=== PATIENT | male | born 1950 | race Caucasian/White ===

== ENCOUNTER → 2018-04-06 | Outpatient (CLI) | payer OTHER ==
--- NOTE | 2018-04-06 10:28 | ECHOF ---
Referral Reason:[id number] Personal history of pulmonary embolism MEASUREMENTS -------- HEIGHT: 170.2 cm WEIGHT: 106.6 kg BP: 141/72 RVIDd: 3.1 cm (< 3.3) IVSd: 1.1 cm (0.6 - 1.1) LVIDd: 5.2 cm (3.9 - 5.3) LVPWd: 1.2 cm (0.6 - 1.1) IVSs: 2.0 cm LVIDs: 3.3 cm LVPWs: 1.6 cm LA Diam: 3.3 cm (2.7 - 3.8) LAESV Index (A-L): 39.28 ml/m Ao Diam: 3.7 cm (2.0 - 3.7) AV Cusp: 2.6 cm (1.5 - 2.6) MV EXCURSION: 21.171 mm (> 18.000) MV EF SLOPE: 118 mm/s (70 - 150) EPSS: 0.3 cm MV E Hossein: 0.86 m/s MV DecT: 251 ms MV A Hossein: 0.70 m/s MV E/A Ratio: 1.22 FINDINGS -------- Sinus rhythm. This was a technically good study. The left ventricular size is normal. There is borderline concentric left ventricular hypertrophy. Overall left ventricular systolic function is normal with, an EF between 55 - 60 %. The right ventricle is normal in size. LA is moderately dilated 34-39 ml/m2 The right atrium is normal in size. Aneurysmal Interatrial septum. There is mild aortic valve sclerosis. The mitral valve is normal. The tricuspid valve appears structurally normal. Trace/mild (physiologic) pulmonic regurgitation. The aortic root size is normal. Normal inferior vena cava with normal inspiratory collapse consistent with estimated right atrial pre ssure of 5 mmHg. There is no pericardial effusion. CONCLUSIONS -------- 1. Sinus rhythm. 2. This was a technically good study. 3. The left ventricular size is normal. 4. There is borderline concentric left ventricular hypertrophy. 5. Overall left ventricular systolic function is normal with, an EF between 55 - 60 %. 6. The right ventricle is normal in size. 7. LA is moderately dilated 34-39 ml/m2 8. The right atrium is normal in size. 9. Aneurysmal Interatrial septum. 10. There is mild aortic valve sclerosis. 11. The mitral valve is normal. 12. The tricuspid valve appears structurally normal. 13. Trace/mild (physiologic) pulmonic regurgitation. 14. The aortic root size is normal. 15. Normal inferior vena cava with normal inspiratory collapse consistent with estimated right atrial pressure of 5 mmHg. 16. There is no pericardial effusion. DEBURR OPERATOR: Marta Zelaya RDCS
== END | disposition home or self-care (01) ==
LOC: RADECHMAIN 08:15
DX: I35.0 Nonrheumatic aortic (valve) stenosis (principal); Z86.711 Personal history of pulmonary embolism; Z87.891 Personal history of nicotine dependence
CPT/HCPCS: 93306

== ENCOUNTER 2021-08-24 16:14 | Inpatient (IN) | payer OTHER, MEDICARE ==
--- NOTE | 2021-08-24 18:00 | XR ---
EXAMINATION TYPE: XR chest 2V DATE OF EXAM: 08/24/2021 COMPARISON: NONE HISTORY: Pain status post fall TECHNIQUE: Frontal and lateral views of the chest are obtained. FINDINGS: There is a mild to moderate bibasilar streaky opacities. No pleural effusion, or pneumotho rax seen. The cardiac silhouette size is within normal limits. No obvious displaced fracture seen. IMPRESSION: Bibasilar opacities, likely atelectasis versus aspiration changes.
[2021-08-24] MEDS ORDERED: HYDROmorphone 1 MG/ML 1 ML SYRINGE IVP STA (19:36)
[2021-08-24 20:00] LABS: Basophils % (A) 0 %; Eosinophils # (A) 0.1 k/uL (0-0.7); Eosinophils % (A) 1 %; HCT 45.3 % (39.0-53.0); Lymphocytes # (A) 1.2 k/uL (1.0-4.8); Lymphocytes % (A) 12 %; MCH 32.9 pg (25.0-35.0); MCHC 33.2 g/dL (31.0-37.0); MCV 99.2 fL (80.0-100.0); Mean Platelet Volume 7.4; Monocytes # (A) 0.7 k/uL (0-1.0); Monocytes % (A) 7 %; Neutrophils % (A) 79 %; Platelet Count 276 k/uL (150-450); RBC 4.56 m/uL (4.30-5.90); RDW 13.3 % (11.5-15.5)
[2021-08-24] MEDS ORDERED: HYDROmorphone 0.5 MG/0.5 ML SYRINGE IVP STA (20:03)
[2021-08-24 20:14] LABS: INR 2.3 (<1.2); Partial Thromboplastin Time 36.1 sec (22.0-30.0); Prothrombin Time 22.7 sec (9.0-12.0)
--- NOTE | 2021-08-24 20:17 | XR ---
EXAMINATION TYPE: XR chest 2V DATE OF EXAM: 08/24/2021 COMPARISON: Same-day HISTORY: Pain status post fall TECHNIQUE: Frontal and lateral views of the chest are obtained. FINDINGS: There is unchanged mild bibasilar streaky opacities. No pleural effusion, or pneumothorax seen. The cardiac silhouette size is within normal limits. The osseous structures are unchanged. IMPRESSION: No significant interval change.
--- NOTE | 2021-08-24 20:30 | CT ---
EXAMINATION TYPE: CT ChestAbdPelvis w con DATE OF EXAM: 08/24/2021 COMPARISON: Same-day radiographs. HISTORY: fall, chest pain CT DLP: 2884.4 mGycm Automated exposure control for dose reduction was used. CONTRAST: CT scan of the chest, abdomen and pelvis is performed without Oral Contrast and with IV Contrast, pat ient injected with 100 mL of Isovue 300. FINDINGS: LUNGS: There is mild dependent opacities. No significant infiltrate, mass or nodule identified. The re is no pleural effusion or pneumothorax seen. The tracheobronchial tree is patent. MEDIASTINUM: There are no greater than 1 cm hilar or mediastinal lymph nodes. No pericardial effusi on is seen. OTHER: No additional significant abnormality is seen. LIVER/GB: No acute abnormality is appreciated. Cholelithiasis. PANCREAS: No significant abnormality is seen. SPLEEN: No significant abnormality is seen. ADRENALS: No significant abnormality is seen. KIDNEYS: No acute abnormality is seen. 3.2 cm simple appearing left renal cyst present. BOWEL: No significant abnormality is seen. REPRODUCTIVE ORGANS: No gross abnormality seen. LYMPH NODES: No greater than 1 cm abdominal or pelvic lymph nodes are appreciated. OSSEOUS STRUCTURES: Subacute/chronic appearing cortical irregularity of mid sternal body. Remaining o sseous structures are anatomic alignment. OTHER: Penile implant seen. IMPRESSION: Subacute/chronic appearing sternal fracture. Otherwise no acute intrathoracic and abdominal/pelvic abnormality. Dependent atelectasis. Additional chronic and incidental findings as above.
[2021-08-24 20:32] LABS: ALT 19 U/L (4-49); AST 21 U/L (17-59); African American GFR (CKD) >90 (>60 ml/min/1.73 sqM); Albumin 4.4 g/dL (3.5-5.0); Alkaline Phosphatase 69 U/L (38-126); Anion Gap 8 mmol/L; Blood Urea Nitrogen 9 mg/dL (9-20); Calcium 9.4 mg/dL (8.4-10.2); Carbon Dioxide 27 mmol/L (22-30); Chloride 102 mmol/L (98-107); Glucose 158 mg/dL (74-99); Magnesium 1.8 mg/dL (1.6-2.3); Non-African American GFR(CKD) >90 (>60 ml/min/1.73 sqM); Potassium 4.4 mmol/L (3.5-5.1); Sodium 137 mmol/L (137-145); Total Bilirubin 0.9 mg/dL (0.2-1.3); Total Protein 7.3 g/dL (6.3-8.2)
--- NOTE | 2021-08-24 20:50 | ED ---
General Adult HPI - General Chief complaint: Fall Stated complaint: Fall, Pain in chest from fall Time Seen by Provider: 08/24/21 19:30 Source: patient, RN notes reviewed, old records reviewed Mode of arrival: ambulatory Limitations: no limitations - History of Present Illness Initial comments: This is a 71-year-old male presents emergency Department complaining of central chest pain. Patient states he fell on a steering column at home and ever since it hurts take a deep breath per patient states he is not short of breath. Hurts take a deep breath. Patient denies hitting his head or neck pain patient denies any numbness weakness. Patient denies any back pain. Patient denies any abdominal pain. Patient denies any other injury. - Related Data Home Medications Medication Instructions Recorded Confirmed Pravastatin Sodium [Pravachol] 20 mg PO DAILY 10/23/13 11/22/17 Warfarin Sodium [Coumadin] 6 mg PO DAILY 10/23/13 11/22/17 glipiZIDE [Glucotrol] 10 mg PO BID 10/23/13 10/23/13 Alprostadil [Caverject] 250 mcg TRANSURETH DAILY 11/22/17 11/22/17 Carbidopa-Levodopa 25-100 mg 1 each PO TID 11/22/17 11/22/17 [Sinemet 25-100] Cholecalciferol [Vitamin D3 (25 2,000 units PO DAILY 11/22/17 11/22/17 Mcg = 1000 Iu)] Cyanocobalamin [Vitamin B-12 1,000 mcg IM DIRECTED 11/22/17 11/22/17 Injection] metFORMIN HCL [Glucophage] 1,000 mg PO BID 11/22/17 11/22/17 Allergies Allergy/AdvReac Type Severity Reaction Status Date / Time No Known Allergies Allergy Verified 08/24/21 17:21 Review of Systems ROS Statement: Those systems with pertinent positive or pertinent negative responses have been documented in the HPI. ROS Other: All systems not noted in ROS Statement are negative. Past Medical History Past Medical History: Diabetes Mellitus, Deep Vein Thrombosis (DVT), Hyperlipidemia Additional Past Medical History / Comment(s): Hard of Hearing, basal cell CA, erectile dysfunction, vitamin D deficiency, DVT left leg, PEx2 History of Any Multi-Drug Resistant Organisms: None Reported Past Surgical History: Orthopedic Surgery Additional Past Surgical History / Comment(s): left broken leg-pin surgery Past Anesthesia/Blood Transfusion Reactions: No Reported Reaction Past Psychological History: No Psychological Hx Reported Past Alcohol Use History: None Reported Past Drug Use History: None Reported General Exam - General Exam Comments Initial Comments: GENERAL: Patient is well-developed and well-nourished. Patient is nontoxic and well- hydrated and is in moderate distress. ENT: Neck is soft and supple. No significant lymphadenopathy is noted. Oropharynx is clear. Moist mucous membranes. Neck has full range of motion without eliciting any pain. EYES: The sclera were anicteric and conjunctiva were pink and moist. Extraocular movements were intact and pupils were equal round and reactive to light. Eyelids were unremarkable. PULMONARY: Unlabored respirations. Good breath sounds bilaterally. No audible rales rhonchi or wheezing was noted. CARDIOVASCULAR: There is a regular rate and rhythm without any murmurs gallops or rubs. Obvious deformity when the patient bruits in a very loud clicking sound when he breathes ABDOMEN: Soft and nontender with normal bowel sounds. SKIN: Skin is clear with no lesions or rashes and otherwise unremarkable. NEUROLOGIC: Patient is alert and oriented x3. Cranial nerves II through XII are grossly intact. Motor and sensory are also intact. Normal speech, volume and content. Symmetrical smile. MUSCULOSKELETAL: Normal extremities with adequate strength and full range of motion. No lower extremity swelling or edema. No calf tenderness. LYMPHATICS: No significant lymphadenopathy is noted PSYCHIATRIC: Normal psychiatric evaluation. Limitations: no limitations Course Vital Signs 08/24/21 17:16 Temperature 97.8 F Pulse Rate 67 Respiratory 18 Rate Blood Pressure 161/86 O2 Sat by Pulse 96 Oximetry Medical Decision Making - Medical Decision Making CT chest abdomen pelvis shows a sternal fracture. Patient received Dilaudid in the emergency department was feeling better but anytime he moved took a deep breath he can feel the cracking and the pain was significant. I spoke with Dr. Cyr he agreed to admit the patient I admitted the patient I wrote admitting orders I consulted medicine and Cardizem surgery. EKG shows sinus rhythm with an occasional PVC at 86 bpm CO interval 132 QRS is 108 QT interval 362 QTC is 45. Patient's EKG shows no ST segment elevation however there is some T-wave inversions in V4 V5 and V6 is no old EKG to compare to. - Lab Data Result diagrams: 08/24/21 19:47 08/24/21 19:47 Lab Results 08/24/21 08/24/21 08/24/21 Range/Units 19:41 19:41 19:47 WBC 10.0 (3.8-10.6) k/uL RBC 4.56 (4.30-5.90) m/uL Hgb 15.0 (13.0-17.5) gm/dL Hct 45.3 (39.0-53.0) % MCV 99.2 (80.0-100.0) fL MCH 32.9 (25.0-35.0) pg MCHC 33.2 (31.0-37.0) g/dL RDW 13.3 (11.5-15.5) % Plt Count 276 (150-450) k/uL MPV 7.4 Neutrophils % 79 % Lymphocytes % 12 % Monocytes % 7 % Eosinophils % 1 % Basophils % 0 % Neutrophils # 8.0 H (1.3-7.7) k/uL Lymphocytes # 1.2 (1.0-4.8) k/uL Monocytes # 0.7 (0-1.0) k/uL Eosinophils # 0.1 (0-0.7) k/uL Basophils # 0.0 (0-0.2) k/uL PT (9.0-12.0) sec INR (<1.2) APTT (22.0-30.0) sec Sodium (137-145) mmol/L Potassium (3.5-5.1) mmol/L Chloride (98-107) mmol/L Carbon Dioxide (22-30) mmol/L Anion Gap mmol/L BUN (9-20) mg/dL Creatinine (0.66-1.25) mg/dL Est GFR (CKD-EPI)AfAm (>60 ml/min/1.73 sqM) Est GFR (CKD-EPI)NonAf (>60 ml/min/1.73 sqM) Glucose (74-99) mg/dL Calcium (8.4-10.2) mg/dL Magnesium (1.6-2.3) mg/dL Total Bilirubin (0.2-1.3) mg/dL AST (17-59) U/L ALT (4-49) U/L Alkaline Phosphatase (38-126) U/L Troponin I (0.000-0.034) ng/mL Total Protein (6.3-8.2) g/dL Albumin (3.5-5.0) g/dL Blood Type O Positive Blood Type Confirm O Positive Blood Type Recheck No Previous Record Bld Type Recheck Status CABO Indicated Antibody Screen NEGATIVE Spec Expiration Date 08/27/2021 - 234008/24/21 08/24/21 08/24/21 Range/Units 19:47 19:47 19:47 WBC (3.8-10.6) k/uL RBC (4.30-5.90) m/uL Hgb (13.0-17.5) gm/dL Hct (39.0-53.0) % MCV (80.0-100.0) fL MCH (25.0-35.0) pg MCHC (31.0-37.0) g/dL RDW (11.5-15.5) % Plt Count (150-450) k/uL MPV Neutrophils % % Lymphocytes % % Monocytes % % Eosinophils % % Basophils % % Neutrophils # (1.3-7.7) k/uL Lymphocytes # (1.0-4.8) k/uL Monocytes # (0-1.0) k/uL Eosinophils # (0-0.7) k/uL Basophils # (0-0.2) k/uL PT 22.7 H (9.0-12.0) sec INR 2.3 H (<1.2) APTT 36.1 H (22.0-30.0) sec Sodium 137 (137-145) mmol/L Potassium 4.4 (3.5-5.1) mmol/L Chloride 102 (98-107) mmol/L Carbon Dioxide 27 (22-30) mmol/L Anion Gap 8 mmol/L BUN 9 (9-20) mg/dL Creatinine 0.78 (0.66-1.25) mg/dL Est GFR (CKD-EPI)AfAm >90 (>60 ml/min/1.73 sqM) Est GFR (CKD-EPI)NonAf >90 (>60 ml/min/1.73 sqM) Glucose 158 H (74-99) mg/dL Calcium 9.4 (8.4-10.2) mg/dL Magnesium 1.8 (1.6-2.3) mg/dL Total Bilirubin 0.9 (0.2-1.3) mg/dL AST 21 (17-59) U/L ALT 19 (4-49) U/L Alkaline Phosphatase 69 (38-126) U/L Troponin I <0.012 (0.000-0.034) ng/mL Total Protein 7.3 (6.3-8.2) g/dL Albumin 4.4 (3.5-5.0) g/dL Blood Type Blood Type Confirm Blood Type Recheck Bld Type Recheck Status Antibody Screen Spec Expiration Date Disposition Clinical Impression: Sternal fracture, Fall Disposition: ADMITTED IP TO THIS HOSP Referrals: [facility],Clinic [Primary Care Provider] - 1-2 days Time of Disposition: 21:05
[2021-08-24] MEDS ORDERED: SODIUM CHLORIDE 0.9% 1,000 ML IV ONE (21:12)
[2021-08-24] MEDS ORDERED: MELATONIN 3 MG TABLET PO PRN (23:23)
[2021-08-24] MEDS ORDERED: TAMSULOSIN 0.4 MG CAP.ER.24H PO SCH (23:30)
[2021-08-24] MEDS ORDERED: lisinopriL 10 MG TAB PO SCH (23:30)
[2021-08-24] MEDS ORDERED: PRAVASTATIN SODIUM 20 MG TAB PO SCH (23:30)
[2021-08-24] MEDS: CARBIDOPA-LEVODOPA 25-100 MG 1 EACH TAB PO SCH (23:39)
[2021-08-25] MEDS: HYDROmorphone 0.5 MG/0.5 ML SYRINGE IVP PRN ×2 (06:56→10:06)
[2021-08-25] MEDS: CARBIDOPA-LEVODOPA 25-100 MG 1 EACH TAB PO SCH (06:57)
[2021-08-25 07:24] LABS: Glucose,Whole Blood 164 mg/dL (75-99)
[2021-08-25 11:22] LABS: Glucose,Whole Blood 343 mg/dL (75-99)
--- NOTE | 2021-08-25 11:44 | P.GSCN ---
<Ruma Law - Last Filed: 08/25/21 11:37> History of Present Illness Consult date: 08/25/21 Reason for Consult: Sternal fracture Requesting physician: Emiliano Cyr History of present illness: This is a 71-year-old gentleman who follows on an outpatient basis at the [facility] clinic. He has a previous medical history of multiple falls, hypertension, left lower extremity DVT on Coumadin at home for anticoagulation, fxu-oqkcwba-pgyzouvbt diabetes, obstructive sleep apnea with home CPAP use, previous tobacco dependence, rare marijuana use. Apparently this gentleman fell about a year ago while moving equipment and landed on his chest. He did not seek treatment in the emergency room as his pain was tolerable at that time. Yesterday he presented to [facility] emergency room again after a fall from tripping while moving car parts. This time he landed on his right side and he had significant chest pain so he presented to the hospital for evaluation and treatment. Chest x-rays demonstrated no fractures and no pneumothoraces. CT of the chest and abdomen was also completed demonstrating sternal fracture, no acute process. Due to finding of sternal fracture consultation was placed to Dr. Jaimes from cardiothoracic surgery. Review of Systems Review of systems was completed and was negative except as noted - Cardiovascular Reports as per HPI, Reports chest pain - Musculoskeletal Reports frequent falls Past Medical History Past Medical History: Diabetes Mellitus, Deep Vein Thrombosis (DVT), Hype rlipidemia, Sleep Apnea/CPAP/BIPAP Additional Past Medical History / Comment(s): Hard of Hearing, basal cell CA on face, erectile dysfunction, vitamin D deficiency, DVT left leg, PEx2, Parkinsons History of Any Multi-Drug Resistant Organisms: None Reported Past Surgical History: Orthopedic Surgery Additional Past Surgical History / Comment(s): left broken leg-pin surgery Past Anesthesia/Blood Transfusion Reactions: No Reported Reaction Past Psychological History: No Psychological Hx Reported Smoking Status: Former smoker Past Alcohol Use History: None Reported Past Drug Use History: Marijuana Additional Drug Use History / Comment(s): "Once in a while, not a regular thing" - Past Family History Mother Additional Family Medical History / Comment(s): alzheimers Father Additional Family Medical History / Comment(s): Stroke Medications and Allergies Home Medications Medication Instructions Recorded Confirmed Type Carbidopa-Levodopa 25-100 mg 1 tab PO TID 11/22/17 08/24/21 History [Sinemet 25-100] Cyanocobalamin [Vitamin B-12 1,000 mcg IM Q2M 11/22/17 08/24/21 History Injection] metFORMIN HCL [Glucophage] 1,000 mg PO BID-W/MEALS 11/22/17 08/24/21 History Cholecalciferol [Vitamin D3 (25 50 mcg PO W/SUPPER 08/24/21 08/24/21 History Mcg = 1000 Iu)] Pravastatin Sodium [Pravachol] 20 mg PO HS 08/24/21 08/24/21 History Tamsulosin HCl [Flomax] 0.4 mg PO HS 08/24/21 08/24/21 History Warfarin [Coumadin] 2.5 mg PO HS 08/24/21 08/24/21 History Warfarin [Coumadin] 5 mg PO HS 08/24/21 08/24/21 History buPROPion HCL [buPROPion HCL SR] 150 mg PO DAILY 08/24/21 08/24/21 History glipiZIDE [Glucotrol] 10 mg PO BID-W/MEALS 08/24/21 08/24/21 History lisinopriL 10 mg PO W/SUPPER 08/24/21 08/24/21 History Allergies Allergy/AdvReac Type Severity Reaction Status Date / Time No Known Allergies Allergy Verified 08/24/21 21:55 Surgical - Exam Vital Signs Temp Pulse Resp BP Pulse Ox 97.8 F 67 18 161/86 96 08/24/21 17:16 08/24/21 17:16 08/24/21 17:16 08/24/21 17:16 08/24/21 17:16 CONSTITUTIONAL: Awake and alert, appears comfortable, cooperative, well-develope d, well-nourished, no pain, no acute distress EYES: Pupils equal, round, reactive to light, normal ocular movement ENT: Moist mucous membranes without oral lesions present NECK: No masses, no bruits, trachea midline RESPIRATORY: Lungs sounds diminished auscultation bilaterally. Respirations ev en, nonlabored. Currently on 2 L nasal cannula with oxygen saturation 95%. Strong cough. CARDIOVASCULAR: S1, S2 present. Regular rate and rhythm, sinus rhythm on telemetry. Sternum stable. Palpable peripheral pulses bilaterally. GASTROINTESTINAL: Abdomen soft, nontender, nondistended without masses or organomegaly noted. There is no rebound or guarding present. Active bowel sounds present 4 quadrants. GENITOURINARY: Deferred INTEGUMENTARY: Skin is warm and dry with evidence of good perfusion. NEUROLOGIC: Cranial nerves II through XII intact, normal coordination, no obvious motor or sensory deficits, speech is normal MUSKULOSKELETAL: Able to move all extremities, strength equal bilaterally, normal posture PSYCHIATRIC: Alert and oriented to person place and time, appropriate affect, intact judgment and insight Results - Labs 08/24/21 19:47 08/24/21 19:47 Abnormal Lab Results - Last 24 Hours (Table) 08/24/21 08/24/21 08/24/21 Range/Units 19:47 19:47 19:47 Neutrophils # 8.0 H (1.3-7.7) k/uL PT 22.7 H (9.0-12.0) sec INR 2.3 H (<1.2) APTT 36.1 H (22.0-30.0) sec Glucose 158 H (74-99) mg/dL POC Glucose (mg/dL) (75-99) mg/dL 08/25/21 Range/Units 07:10 Neutrophils # (1.3-7.7) k/uL PT (9.0-12.0) sec INR (<1.2) APTT (22.0-30.0) sec Glucose (74-99) mg/dL POC Glucose (mg/dL) 164 H (75-99) mg/dL Diabetes panel 08/24/21 Range/Units 19:47 Sodium 137 (137-145) mmol/L Potassium 4.4 (3.5-5.1) mmol/L Chloride 102 (98-107) mmol/L Carbon Dioxide 27 (22-30) mmol/L BUN 9 (9-20) mg/dL Creatinine 0.78 (0.66-1.25) mg/dL Glucose 158 H (74-99) mg/dL Calcium 9.4 (8.4-10.2) mg/dL AST 21 (17-59) U/L ALT 19 (4-49) U/L Alkaline Phosphatase 69 (38-126) U/L Total Protein 7.3 (6.3-8.2) g/dL Albumin 4.4 (3.5-5.0) g/dL Calcium panel 08/24/21 Range/Units 19:47 Calcium 9.4 (8.4-10.2) mg/dL Albumin 4.4 (3.5-5.0) g/dL Pituitary panel 08/24/21 Range/Units 19:47 Sodium 137 (137-145) mmol/L Potassium 4.4 (3.5-5.1) mmol/L Chloride 102 (98-107) mmol/L Carbon Dioxide 27 (22-30) mmol/L BUN 9 (9-20) mg/dL Creatinine 0.78 (0.66-1.25) mg/dL Glucose 158 H (74-99) mg/dL Calcium 9.4 (8.4-10.2) mg/dL Adrenal panel 08/24/21 Range/Units 19:47 Sodium 137 (137-145) mmol/L Potassium 4.4 (3.5-5.1) mmol/L Chloride 102 (98-107) mmol/L Carbon Dioxide 27 (22-30) mmol/L BUN 9 (9-20) mg/dL Creatinine 0.78 (0.66-1.25) mg/dL Glucose 158 H (74-99) mg/dL Calcium 9.4 (8.4-10.2) mg/dL Total Bilirubin 0.9 (0.2-1.3) mg/dL AST 21 (17-59) U/L ALT 19 (4-49) U/L Alkaline Phosphatase 69 (38-126) U/L Total Protein 7.3 (6.3-8.2) g/dL Albumin 4.4 (3.5-5.0) g/dL - Imaging Chest x-ray: report reviewed, image reviewed CT scan - chest: report reviewed, image reviewed Assessment and Plan Assessment: 1. Old healed sternal fracture from previous fall, another fall from standing prior to this admission 2. History of hypertension 3. Left lower extremity DVT on Coumadin at home for anticoagulation 4. Rvt-mslsfkw-hdqbxyucw diabetes 5. Obstructive sleep apnea with home CPAP use 6. Previous tobacco dependence 7. Rare marijuana use Plan: The patient was seen and examined at the bedside. Chart/diagnostics were reviewed in detail with Dr. Jaimes. Patient's sternal fracture appears old and healed with calcium formation present. No surgical intervention is warranted. We will give patient a heart hugger to reduce stress on the sternum with mobility, coughing. We will order incentive spirometry and encourage its use. Pain control per primary care. Medical management of other comorbidities per primary care. Thank you Dr. Cyr for this consult. Please call us with any further questions. I have personally seen and examined the patient, performed the documentation and the assessment and plan as written. Number of minutes spent on the visit: 30. Time with Patient: Greater than 30 <Gio Jaimes - Last Filed: 08/25/21 13:36> Surgical - Exam Vital Signs Temp Pulse Resp BP Pulse Ox 97.8 F 67 18 161/86 96 08/24/21 17:16 08/24/21 17:16 08/24/21 17:16 08/24/21 17:16 08/24/21 17:16 Results - Labs 08/24/21 19:47 08/24/21 19:47 Abnormal Lab Results - Last 24 Hours (Table) 08/24/21 08/24/21 08/24/21 Range/Units 19:47 19:47 19:47 Neutrophils # 8.0 H (1.3-7.7) k/uL PT 22.7 H (9.0-12.0) sec INR 2.3 H (<1.2) APTT 36.1 H (22.0-30.0) sec Glucose 158 H (74-99) mg/dL POC Glucose (mg/dL) (75-99) mg/dL 08/25/21 08/25/21 Range/Units 07:10 11:17 Neutrophils # (1.3-7.7) k/uL PT (9.0-12.0) sec INR (<1.2) APTT (22.0-30.0) sec Glucose (74-99) mg/dL POC Glucose (mg/dL) 164 H 343 H (75-99) mg/dL Diabetes panel 08/24/21 Range/Units 19:47 Sodium 137 (137-145) mmol/L Potassium 4.4 (3.5-5.1) mmol/L Chloride 102 (98-107) mmol/L Carbon Dioxide 27 (22-30) mmol/L BUN 9 (9-20) mg/dL Creatinine 0.78 (0.66-1.25) mg/dL Glucose 158 H (74-99) mg/dL Calcium 9.4 (8.4-10.2) mg/dL AST 21 (17-59) U/L ALT 19 (4-49) U/L Alkaline Phosphatase 69 (38-126) U/L Total Protein 7.3 (6.3-8.2) g/dL Albumin 4.4 (3.5-5.0) g/dL Calcium panel 08/24/21 Range/Units 19:47 Calcium 9.4 (8.4-10.2) mg/dL Albumin 4.4 (3.5-5.0) g/dL Pituitary panel 08/24/21 Range/Units 19:47 Sodium 137 (137-145) mmol/L Potassium 4.4 (3.5-5.1) mmol/L Chloride 102 (98-107) mmol/L Carbon Dioxide 27 (22-30) mmol/L BUN 9 (9-20) mg/dL Creatinine 0.78 (0.66-1.25) mg/dL Glucose 158 H (74-99) mg/dL Calcium 9.4 (8.4-10.2) mg/dL Adrenal panel 08/24/21 Range/Units 19:47 Sodium 137 (137-145) mmol/L Potassium 4.4 (3.5-5.1) mmol/L Chloride 102 (98-107) mmol/L Carbon Dioxide 27 (22-30) mmol/L BUN 9 (9-20) mg/dL Creatinine 0.78 (0.66-1.25) mg/dL Glucose 158 H (74-99) mg/dL Calcium 9.4 (8.4-10.2) mg/dL Total Bilirubin 0.9 (0.2-1.3) mg/dL AST 21 (17-59) U/L ALT 19 (4-49) U/L Alkaline Phosphatase 69 (38-126) U/L Total Protein 7.3 (6.3-8.2) g/dL Albumin 4.4 (3.5-5.0) g/dL Assessment and Plan Assessment: CT, CXR films reviewed and patient examined. No evidence of significant acute thoracic injury. Old healed sternal fracture evident on radiologic studies. Patient does state he had fall one year ago with injury to sternal region at that time.
[2021-08-25] MEDS ORDERED: INSULIN ASPART (NovoLOG) 100 UNIT/ML VIAL SQ SCH (12:30)
[2021-08-25 13:36] VITALS: BP 129/69; PULSE 51; RESP 16; TEMP 98.4
[2021-08-25] MEDS ORDERED: HYDROcodone/APAP 5-325MG 1 EACH TAB PO PRN (13:56)
--- NOTE | 2021-08-25 15:23 | P.GSHP ---
History of Present Illness H&P Date: 08/25/21 CHIEF COMPLAINT: Fall HISTORY OF PRESENT ILLNESS: This is a 71-year-old male who presented to the e mergency room with complaints of right-sided chest pain after a fall. Patient reports that he was carrying the steering we will call him and tripped over a tire on the ground. The steering will calm jabbed him into the chest. And sternum area. He was having a hard time taking a deep breath. Patient reports having a similar fall about 1 year ago. At that time he fell while holding a TV in the TV slammed into his chest wall. Patient had a computed tomography scan of the chest abdomen and pelvis that showed a subacute chronic sternal fracture. Patient seen evaluated by cardiothoracic surgery. They've ordered a brace for the chest wall. No surgical intervention planned and have cleared him for discharge. Patient has been up and ambulating. He is on room air. He is tolerating diet. He is afebrile. PAST MEDICAL HISTORY: See list. PAST SURGICAL HISTORY: See list. MEDICATIONS: See list. ALLERGIES: See list. SOCIAL HISTORY: No illicit drug use. REVIEW OF SYSTEMS: CONSTITUTIONAL: Denies fever or chills. HEENT: Denies blurred vision, vision changes, or eye pain. Denies hemoptysis CARDIOVASCULAR: Denies chest pain or pressure. RESPIRATORY: No shortness of breath. GASTROINTESTINAL: See HPI for pertinent findings HEMATOLOGIC: Denies bleeding disorders. GENITOURINARY: Denies any blood in urine or increased urinary frequency. SKIN: Denies pruitis. Denies rash. PHYSICAL EXAM: VITAL SIGNS: Reviewed GENERAL: Well-developed in no acute distress. HEENT: No sclera icterus. Extraocular movements grossly intact. Moist buccal mucosa. Head is atraumatic, normocephalic. No nasal drainage. ABDOMEN: Soft. Nondistended. Nondistended NEUROLOGIC: Alert and oriented. Cranial nerves II through XII grossly intact. Chest wall no evidence of bruising some mild tenderness with palpation. LABORATORY DATA: WBC is 10 hemoglobin is 15 platelets 266 INR 2.3 Sodium is 137 potassium 4.4 creatinine 0.78 Troponins negative 3 LFTs normal IMAGING: Computed tomography scan chest abdomen pelvis subacute/chronic appearing sternal fracture. No acute intrathoracic area abdominal abnormality. Dependent atelectasis. ASSESSMENT: 1. Fall with trauma to chest wall 2. Subacute/chronic sternal fracture PLAN: -Cardiothoracic team consulted -Continue pain medication as needed -Continue supportive care -Continue incentive spirometer use -Encourage patient to ambulate -No surgical intervention planned Physician Learning Disabilities Specialist note has been reviewed by physician. Signing provider agrees with the documented findings, assessment, and plan of care. Past Medical History Past Medical History: Diabetes Mellitus, Deep Vein Thrombosis (DVT), Hyperlipidemia Additional Past Medical History / Comment(s): Hard of Hearing, basal cell CA on face, erectile dysfunction, vitamin D deficiency, DVT left leg, PEx2, Pa rkinsons History of Any Multi-Drug Resistant Organisms: None Reported Past Surgical History: Orthopedic Surgery Additional Past Surgical History / Comment(s): left broken leg-pin surgery Past Anesthesia/Blood Transfusion Reactions: No Reported Reaction Past Psychological History: No Psychological Hx Reported Smoking Status: Former smoker Past Alcohol Use History: None Reported Past Drug Use History: Marijuana Additional Drug Use History / Comment(s): "Once in a while, not a regular thing" - Past Family History Mother Additional Family Medical History / Comment(s): alzheimers Father Additional Family Medical History / Comment(s): Stroke Medications and Allergies Home Medications Medication Instructions Recorded Confirmed Type Carbidopa-Levodopa 25-100 mg 1 tab PO TID 11/22/17 08/24/21 History [Sinemet 25-100 mg] Cyanocobalamin [Vitamin B-12 1,000 mcg IM Q2M 11/22/17 08/24/21 History Injection] metFORMIN HCL [Glucophage] 1,000 mg PO BID-W/MEALS 11/22/17 08/24/21 History Cholecalciferol [Vitamin D3 (25 50 mcg PO W/SUPPER 08/24/21 08/24/21 History Mcg = 1000 Iu)] Pravastatin Sodium [Pravachol] 20 mg PO HS 08/24/21 08/24/21 History Tamsulosin HCl [Flomax] 0.4 mg PO HS 08/24/21 08/24/21 History Warfarin [Coumadin] 2.5 mg PO HS 08/24/21 08/24/21 History Warfarin [Coumadin] 5 mg PO HS 08/24/21 08/24/21 History buPROPion HCL [buPROPion HCL SR] 150 mg PO DAILY 08/24/21 08/24/21 History glipiZIDE [Glucotrol] 10 mg PO BID-W/MEALS 08/24/21 08/24/21 History lisinopriL 10 mg PO W/SUPPER 08/24/21 08/24/21 History HYDROcodone/APAP 5-325MG [[place] 1 tab PO Q6HR PRN 3 Days #12 tab 08/25/21 Rx 5-325] Allergies Allergy/AdvReac Type Severity Reaction Status Date / Time No Known Allergies Allergy Verified 08/24/21 21:55 Surgical - Exam Vital Signs Temp Pulse Resp BP Pulse Ox 97.8 F 67 18 161/86 96 08/24/21 17:16 08/24/21 17:16 08/24/21 17:16 08/24/21 17:16 08/24/21 17:16 Results - Labs 08/24/21 19:47 08/24/21 19:47 Abnormal Lab Results - Last 24 Hours (Table) 08/24/21 08/24/21 08/24/21 Range/Units 19:47 19:47 19:47 Neutrophils # 8.0 H (1.3-7.7) k/uL PT 22.7 H (9.0-12.0) sec INR 2.3 H (<1.2) APTT 36.1 H (22.0-30.0) sec Glucose 158 H (74-99) mg/dL POC Glucose (mg/dL) (75-99) mg/dL 08/25/21 08/25/21 Range/Units 07:10 11:17 Neutrophils # (1.3-7.7) k/uL PT (9.0-12.0) sec INR (<1.2) APTT (22.0-30.0) sec Glucose (74-99) mg/dL POC Glucose (mg/dL) 164 H 343 H (75-99) mg/dL Diabetes panel 08/24/21 Range/Units 19:47 Sodium 137 (137-145) mmol/L Potassium 4.4 (3.5-5.1) mmol/L Chloride 102 (98-107) mmol/L Carbon Dioxide 27 (22-30) mmol/L BUN 9 (9-20) mg/dL Creatinine 0.78 (0.66-1.25) mg/dL Glucose 158 H (74-99) mg/dL Calcium 9.4 (8.4-10.2) mg/dL AST 21 (17-59) U/L ALT 19 (4-49) U/L Alkaline Phosphatase 69 (38-126) U/L Total Protein 7.3 (6.3-8.2) g/dL Albumin 4.4 (3.5-5.0) g/dL Calcium panel 08/24/21 Range/Units 19:47 Calcium 9.4 (8.4-10.2) mg/dL Albumin 4.4 (3.5-5.0) g/dL Pituitary panel 08/24/21 Range/Units 19:47 Sodium 137 (137-145) mmol/L Potassium 4.4 (3.5-5.1) mmol/L Chloride 102 (98-107) mmol/L Carbon Dioxide 27 (22-30) mmol/L BUN 9 (9-20) mg/dL Creatinine 0.78 (0.66-1.25) mg/dL Glucose 158 H (74-99) mg/dL Calcium 9.4 (8.4-10.2) mg/dL Adrenal panel 08/24/21 Range/Units 19:47 Sodium 137 (137-145) mmol/L Potassium 4.4 (3.5-5.1) mmol/L Chloride 102 (98-107) mmol/L Carbon Dioxide 27 (22-30) mmol/L BUN 9 (9-20) mg/dL Creatinine 0.78 (0.66-1.25) mg/dL Glucose 158 H (74-99) mg/dL Calcium 9.4 (8.4-10.2) mg/dL Total Bilirubin 0.9 (0.2-1.3) mg/dL AST 21 (17-59) U/L ALT 19 (4-49) U/L Alkaline Phosphatase 69 (38-126) U/L Total Protein 7.3 (6.3-8.2) g/dL Albumin 4.4 (3.5-5.0) g/dL
--- NOTE | 2021-08-25 15:25 | P.DS ---
Providers Date of admission: 08/24/21 21:12 Expected date of discharge: 08/25/21 Attending physician: Emiliano Cyr Consults: 08/24/21 21:12 Consult Physician Urgent Consulting Provider: Cyrus Escoto Consult Reason/Comments: Sternal fracture Do you want consulting provider notified?: Yes Consult Physician Urgent Consulting Provider: Lois Fitzgerald Consult Reason/Comments: Medical management Do you want consulting provider notified?: Yes Primary care physician: [facility] Hospital Course: Discharge diagnosis 1. Fall with trauma to chest wall 2. Subacute/chronic sternal fracture Hospital course This is a 71-year-old male who presented to the emergency room with complaints of right-sided chest pain after a fall. Patient reports that he was carrying the steering we will call him and tripped over a tire on the ground. The steering will calm jabbed him into the chest. And sternum area. He was having a hard time taking a deep breath. Patient reports having a similar fall about 1 year ago. At that time he fell while holding a TV in the TV slammed into his chest wall. Patient had a computed tomography scan of the chest abdomen and pelvis that showed a subacute chronic sternal fracture. Patient seen evaluated by cardiothoracic surgery. They've ordered a brace for the chest wall. No surgical intervention planned and have cleared him for discharge. Patient has been up and ambulating. He is on room air. He is tolerating diet. He is afebrile. Patient is stable for discharge. Please refer to chart for any further details. Physician Area Mechanic note has been reviewed by physician. Signing provider agrees with the documented findings, assessment, and plan of care. Patient Condition at Discharge: Stable Plan - Discharge Summary Discharge Rx Participant: Yes New Discharge Prescriptions: New HYDROcodone/APAP 5-325MG [[place] 5-325] 1 tab PO Q6HR PRN 3 Days #12 tab PRN Reason: Pain Continue Carbidopa-Levodopa 25-100 mg [Sinemet 25-100 mg] 1 tab PO TID metFORMIN HCL [Glucophage] 1,000 mg PO BID-W/MEALS Cyanocobalamin [Vitamin B-12 Injection] 1,000 mcg IM Q2M Tamsulosin HCl [Flomax] 0.4 mg PO HS Cholecalciferol [Vitamin D3 (25 Mcg = 1000 Iu)] 50 mcg PO W/SUPPER glipiZIDE [Glucotrol] 10 mg PO BID-W/MEALS Pravastatin Sodium [Pravachol] 20 mg PO HS Warfarin [Coumadin] 5 mg PO HS buPROPion HCL [buPROPion HCL SR] 150 mg PO DAILY Warfarin [Coumadin] 2.5 mg PO HS lisinopriL 10 mg PO W/SUPPER Discharge Medication List Carbidopa-Levodopa 25-100 mg [Sinemet 25-100 mg] 1 tab PO TID 11/22/17 [History] Cyanocobalamin [Vitamin B-12 Injection] 1,000 mcg IM Q2M 11/22/17 [History] metFORMIN HCL [Glucophage] 1,000 mg PO BID-W/MEALS 11/22/17 [History] Cholecalciferol [Vitamin D3 (25 Mcg = 1000 Iu)] 50 mcg PO W/SUPPER 08/24/21 [History] Pravastatin Sodium [Pravachol] 20 mg PO HS 08/24/21 [History] Tamsulosin HCl [Flomax] 0.4 mg PO HS 08/24/21 [History] Warfarin [Coumadin] 2.5 mg PO HS 08/24/21 [History] Warfarin [Coumadin] 5 mg PO HS 08/24/21 [History] buPROPion HCL [buPROPion HCL SR] 150 mg PO DAILY 08/24/21 [History] glipiZIDE [Glucotrol] 10 mg PO BID-W/MEALS 08/24/21 [History] lisinopriL 10 mg PO W/SUPPER 08/24/21 [History] HYDROcodone/APAP 5-325MG [[place] 5-325] 1 tab PO Q6HR PRN 3 Days #12 tab 08/25/21 [Rx] Follow up Appointment(s)/Referral(s): [facility] [Primary Care Provider] - 1-2 days Patient Instructions/Handouts: Fall Prevention (DC) Activity/Diet/Wound Care/Special Instructions: Activity as tolerated Discharge Disposition: HOME SELF-CARE
--- NOTE | 2021-08-25 22:40 | P.CONS ---
History of Present Illness - History of Present Illness This is a pleasant 71 years old male with past medical history of Diabetes Me llitus, Deep Vein Thrombosis on warfarin at home , Hyperlipidemia, Hard of Hearing, basal cell CA on face, erectile dysfunction, vitamin D deficiency, DVT left leg, PEx2, Parkinsons Patient states that he was carrying his posterior column when he fell and hurt his chest, states that he tripped over her entire before he fall. He denies chest pain or dizziness react no loss of consciousness. He has similar episode last year when he fell carrying his TV and also tripped and fell. His right-sided chest pain is almost resolved and he rated as 1/10 now with mild tenderness. Patient is eating well, he is walking fine. He denies chest pain or dyspnea. No abdominal pain. No urinary complaints. No leg weakness or numbness. No difficulty moving his arms. No headache or dizziness. No blurred vision or slurred speech Hemodynamically stable. He denies smoking, alcohol or illicit drugs. CBC is unremarkable, INR 2.3, BMP and liver enzymes and serial troponins are neg ative and unremarkable. CT of the abdomen and pelvis and chest with contrast showing subacute/chronic sternal fracture, otherwise no acute intrathoracic, intra-abdominal/pelvic abnormality, he has some dependent atelectasis Past Medical History Past Medical History: Diabetes Mellitus, Deep Vein Thrombosis (DVT), Hyperlipidemia Additional Past Medical History / Comment(s): Hard of Hearing, basal cell CA on face, erectile dysfunction, vitamin D deficiency, DVT left leg, PEx2, Parkinsons History of Any Multi-Drug Resistant Organisms: None Reported Past Surgical History: Orthopedic Surgery Additional Past Surgical History / Comment(s): left broken leg-pin surgery Past Anesthesia/Blood Transfusion Reactions: No Reported Reaction Past Psychological History: No Psychological Hx Reported Smoking Status: Former smoker Past Alcohol Use History: None Reported Past Drug Use History: Marijuana Additional Drug Use History / Comment(s): "Once in a while, not a regular thing" - Past Family History Mother Additional Family Medical History / Comment(s): alzheimers Father Additional Family Medical History / Comment(s): Stroke Medications and Allergies Home Medications Medication Instructions Recorded Confirmed Type Carbidopa-Levodopa 25-100 mg 1 tab PO TID 11/22/17 08/24/21 History [Sinemet 25-100 mg] Cyanocobalamin [Vitamin B-12 1,000 mcg IM Q2M 11/22/17 08/24/21 History Injection] metFORMIN HCL [Glucophage] 1,000 mg PO BID-W/MEALS 11/22/17 08/24/21 History Cholecalciferol [Vitamin D3 (25 50 mcg PO W/SUPPER 08/24/21 08/24/21 History Mcg = 1000 Iu)] Pravastatin Sodium [Pravachol] 20 mg PO HS 08/24/21 08/24/21 History Tamsulosin HCl [Flomax] 0.4 mg PO HS 08/24/21 08/24/21 History Warfarin [Coumadin] 2.5 mg PO HS 08/24/21 08/24/21 History Warfarin [Coumadin] 5 mg PO HS 08/24/21 08/24/21 History buPROPion HCL [buPROPion HCL SR] 150 mg PO DAILY 08/24/21 08/24/21 History glipiZIDE [Glucotrol] 10 mg PO BID-W/MEALS 08/24/21 08/24/21 History lisinopriL 10 mg PO W/SUPPER 08/24/21 08/24/21 History HYDROcodone/APAP 5-325MG [[place] 1 tab PO Q6HR PRN 3 Days #12 tab 08/25/21 Rx 5-325] Allergies Allergy/AdvReac Type Severity Reaction Status Date / Time No Known Allergies Allergy Verified 08/24/21 21:55 Physical Exam Vitals: Vital Signs Temp Pulse Pulse Resp BP BP Pulse Ox 08/25/21 07:31 98.3 F 97 18 134/75 95 08/25/21 07:00 18 08/25/21 04:41 97 08/25/21 02:00 98.6 F 99 17 135/71 92 L 08/24/21 23:20 88 18 08/24/21 22:14 97.6 F 88 18 167/87 94 L 08/24/21 21:45 74 16 157/93 94 L 08/24/21 17:16 97.8 F 67 18 161/86 96 Intake and Output 08/24/21 08/25/21 08/25/21 22:59 06:59 14:59 Other: Voiding Method Urinal Urinal # Voids 1 Weight 113.398 kg -GENERAL: The patient is alert and oriented x3, not in any acute distress. Obese HEENT: Pupils are round and equally reacting to light. EOMI. No scleral icterus. No conjunctival pallor. Normocephalic, atraumatic. No pharyngeal erythema. No thyromegaly. CARDIOVASCULAR: S1 and S2 present. No murmurs, rubs, or gallops. PULMONARY: Chest is clear to auscultation, no wheezing or crackles. ABDOMEN: Soft, nontender, nondistended, normoactive bowel sounds. No palpable organomegaly. MUSCULOSKELETAL: No joint swelling or deformity. EXTREMITIES: No cyanosis, clubbing, or pedal edema. NEUROLOGICAL: Gross neurological examination did not reveal any focal deficits. SKIN: No rashes. no petechiae. Results CBC & Chem 7: 08/24/21 19:47 08/24/21 19:47 Labs: Abnormal Lab Results - Last 24 Hours (Table) 08/24/21 08/24/21 08/24/21 Range/Units 19:47 19:47 19:47 Neutrophils # 8.0 H (1.3-7.7) k/uL PT 22.7 H (9.0-12.0) sec INR 2.3 H (<1.2) APTT 36.1 H (22.0-30.0) sec Glucose 158 H (74-99) mg/dL POC Glucose (mg/dL) (75-99) mg/dL 08/25/21 08/25/21 Range/Units 07:10 11:17 Neutrophils # (1.3-7.7) k/uL PT (9.0-12.0) sec INR (<1.2) APTT (22.0-30.0) sec Glucose (74-99) mg/dL POC Glucose (mg/dL) 164 H 343 H (75-99) mg/dL Assessment and Plan Assessment: Following the trauma associated with sternal fracture without losing consciousness Diabetes mellitus History of deep venous thrombosis and pulmonary embolism Hyperlipidemia Hearing difficulty History of vitamin D deficiency History of Parkinson disease Morbid obesity with BMI 39.2 Plan: This is a pleasant 71 years old male who presents with fall without LOC, he has some sternal fracture which could be subacute/chronic Continue with pain management which is minimal Continue with incentive spirometry Cardiothoracic surgery consult at the primary surgery team on the case Thank you for consulting us, patient looks medically stable we will follow up
== END 2021-08-25 15:52 | disposition home or self-care (01) | DRG 565 ==
LOC: EC 16:14 → 4SSUR 21:12
PROVIDERS: ADMIT Surgery; ATTEND Surgery
DX: S22.20XA Unspecified fracture of sternum, initial encounter for closed fracture (principal); J98.11 Atelectasis; E11.9 Type 2 diabetes mellitus without complications; E66.01 Morbid (severe) obesity due to excess calories; N52.9 Male erectile dysfunction, unspecified; E78.5 Hyperlipidemia, unspecified; G20 Parkinson's disease; Z91.81 History of falling; G47.33 Obstructive sleep apnea (adult) (pediatric); H91.90 Unspecified hearing loss, unspecified ear; I10 Essential (primary) hypertension; I49.3 Ventricular premature depolarization; W01.0XXA Fall on same level from slipping, tripping and stumbling without subsequent striking against object, initial encounter; Z68.39 Body mass index [BMI] 39.0-39.9, adult; Z79.01 Long term (current) use of anticoagulants; Z79.84 Long term (current) use of oral hypoglycemic drugs; Z79.899 Other long term (current) drug therapy; Z82.0 Family history of epilepsy and other diseases of the nervous system; Z82.3 Family history of stroke; Z85.828 Personal history of other malignant neoplasm of skin; Z86.711 Personal history of pulmonary embolism; Z86.718 Personal history of other venous thrombosis and embolism; Z87.891 Personal history of nicotine dependence; E55.9 Vitamin D deficiency, unspecified
CPT/HCPCS: 36415; 71046; 71260; 74177; 80053; 83735; 84484; 85025; 85610; 85730; 86850; 86900; 86901; 93005; 96374; 96376; 99285

== ENCOUNTER 2024-01-05 18:54 | Inpatient (IN) | payer OTHER, MEDICARE ==
[2024-01-05] MEDS: TRANEXAMIC ACID 1,000 MG/10 ML VIAL MISCELLANE ONE (19:43)
--- NOTE | 2024-01-05 20:01 | ED ---
General Adult HPI - General Chief complaint: Dental/Oral Stated complaint: 10 teeth extracted nonstop bleeding Time Seen by Provider: 01/05/24 19:25 Source: patient, RN notes reviewed, old records reviewed Mode of arrival: ambulatory Limitations: no limitations - History of Present Illness Initial comments: This is a 73-year-old male who presents to the emergency department stating he is on Coumadin for a blood clot in his leg. Patient states he was not taken off the Coumadin and he was at the dentist today and they extracted 10 teeth and he states he still bleeding a little bit from the mouth and that concerned him so he came to the emergency department. Patient's heart rate is 135 and when I asked him if he feels any palpitation shortness of breath or chest pain he denied it. Patient denies any history of atrial fibrillation or atrial flutter. Patient denies any pain in the mouth either. - Related Data Home Medications Medication Instructions Recorded Confirmed Carbidopa-Levodopa 25-100 mg 1 tab PO TID 11/22/17 08/24/21 [Sinemet 25-100 mg] Cyanocobalamin [Vitamin B-12 1,000 mcg IM Q2M 11/22/17 08/24/21 Injection] metFORMIN HCL [Glucophage] 1,000 mg PO BID-W/MEALS 11/22/17 08/24/21 Cholecalciferol [Vitamin D3 (25 50 mcg PO W/SUPPER 08/24/21 08/24/21 Mcg = 1000 Iu)] Pravastatin Sodium [Pravachol] 20 mg PO HS 08/24/21 08/24/21 Tamsulosin HCl [Flomax] 0.4 mg PO HS 08/24/21 08/24/21 Warfarin [Coumadin] 2.5 mg PO HS 08/24/21 08/24/21 Warfarin [Coumadin] 5 mg PO HS 08/24/21 08/24/21 buPROPion HCL [buPROPion HCL SR] 150 mg PO DAILY 08/24/21 08/24/21 glipiZIDE [Glucotrol] 10 mg PO BID-W/MEALS 08/24/21 08/24/21 lisinopriL [Prinivil] 10 mg PO W/SUPPER 08/24/21 08/24/21 Previous Rx's Medication Instructions Recorded HYDROcodone/APAP 5-325MG [Bison 1 tab PO Q6HR PRN 3 Days #12 tab 08/25/21 5-325] Allergies Allergy/AdvReac Type Severity Reaction Status Date / Time No Known Allergies Allergy Verified 01/05/24 19:16 Review of Systems ROS Statement: Those systems with pertinent positive or pertinent negative responses have been documented in the HPI. ROS Other: All systems not noted in ROS Statement are negative. Past Medical History Past Medical History: Diabetes Mellitus, Deep Vein Thrombosis (DVT), Hyperlipidemia Additional Past Medical History / Comment(s): Hard of Hearing, basal cell CA on face, erectile dysfunction, vitamin D deficiency, DVT left leg, PEx2, Parkinsons History of Any Multi-Drug Resistant Organisms: None Reported Past Surgical History: Orthopedic Surgery Additional Past Surgical History / Comment(s): left broken leg-pin surgery Past Anesthesia/Blood Transfusion Reactions: No Reported Reaction Past Psychological History: No Psychological Hx Reported Smoking Status: Former smoker Past Alcohol Use History: None Reported Past Drug Use History: Marijuana - Past Family History Mother Additional Family Medical History / Comment(s): alzheimers Father Additional Family Medical History / Comment(s): Stroke General Exam - General Exam Comments Initial Comments: GENERAL: Patient is well-developed and well-nourished. Patient is nontoxic and well- hydrated and is in no acute distress. ENT: Neck is soft and supple. No significant lymphadenopathy is noted. Oropharynx is clear. Moist mucous membranes. Neck has full range of motion without eliciting any pain. were felt. EYES: The sclera were anicteric and conjunctiva were pink and moist. Extraocular movements were intact and pupils were equal round and reactive to light. Eyelids were unremarkable. PULMONARY: Unlabored respirations. Good breath sounds bilaterally. No audible rales rhonchi or wheezing was noted. CARDIOVASCULAR: Patient is tachycardic at 135 bpm and regular ABDOMEN: Soft and nontender with normal bowel sounds. SKIN: Skin is clear with no lesions or rashes and otherwise unremarkable. NEUROLOGIC: Patient is alert and oriented x3. Cranial nerves II through XII are grossly intact. Motor and sensory are also intact. Normal speech, volume and content. Symmetrical smile. MUSCULOSKELETAL: Normal extremities with adequate strength and full range of motion. LYMPHATICS: No significant lymphadenopathy is noted PSYCHIATRIC: Normal psychiatric evaluation. Limitations: no limitations Course Vital Signs 01/05/24 01/05/24 19:14 19:28 Temperature 97.6 F 99.1 F Pulse Rate 137 H 133 H Pulse Rate [ 133 H Corporate Lawyer ] Respiratory 20 22 Rate Blood Pressure 134/93 134/94 O2 Sat by Pulse 97 95 Oximetry Medical Decision Making - Medical Decision Making EKG is interpreted by myself but EKG shows a junctional tachycardia at 132 bpm parables 119 QRS is 105 QT interval is 291 QTc is 369. Patient's EKG shows no ST segment elevation. Was pt. sent in by a medical professional or institution (, [facility], SPRAY WORKER, urgent care, hospital, or correction...) When possible be specific @ -No Did you speak to anyone other than the patient for history (EMS, parent, family, police, friend...)? What history was obtained from this source @ -No Did you review nursing and triage notes (agree or disagree)? Why? @ -I reviewed and agree with nursing and triage notes Were old charts reviewed (outside hosp., previous admission, EMS record, old EKG, old radiological studies, urgent care reports/EKG's, correction records)? Report findings @ -No old charts were reviewed Differential Diagnosis? @ -Differential Palpitations Ventricular arrhythmias, atrial arrhythmias, myocardial infarction, anemia, thyrotoxicosis, electrolyte imbalance, hypokalemia, pulmonary embolism, pulmonary disease, drugs, alcohol, anxiety, stress.... This is not meant to be an all-inclusive list. EKG interpreted by me (3pts min.). @ -As above X-rays interpreted by me (1pt min.). @ -None done CT interpreted by me (1pt min.). @ -None done U/S interpreted by me (1pt. min.). @ -None done What testing was considered but not performed or refused? (CT, X-rays, U/S, labs)? Why? @ -None What meds were considered but not given or refused? Why? @ -None Did you discuss the management of the patient with other professionals (professionals i.e. [facility] Arce, SPRAY WORKER, lab, RT, psych nurse, home health care social worker, treatment technician, teacher, safety officer, ed case manager)? Give summary @ -I spoke with Dr. Lopez he agreed to admit the patient admit the patient Admit the patient wrote admitting orders and consult to cardiology Was smoking cessation discussed for >3mins.? @ -No Was critical care preformed (if so, how long)? @ -No Were there social determinants of health that impacted care today? How? (Homelessness, low income, unemployed, alcoholism, drug addiction, transportation, low edu. Level, literacy, decrease access to med. care, senior care, rehab)? @ -No Was there de-escalation of care discussed even if they declined (Discuss DNR or withdrawal of care, Hospice)? DNR status @ -No What co-morbidities impacted this encounter? (DM, HTN, Smoking, COPD, CAD, Cancer, CVA, ARF, Chemo, Hep., AIDS, mental health diagnosis, sleep apnea, morbid obesity)? @ -None Was patient admitted / discharged? Hospital course, mention meds given and route, prescriptions, significant lab abnormalities, going to OR and other pertinent info. @ -Patient was given TXA on gauze and placed in the sockets where the teeth used to be and it slowed his bleeding down to almost nothing. Patient hemoglobin was stable. Patient's heart rate remained at 134 beats a minute I placed him on Cardizem after Cardizem bolus. Patient will be admitted for a junctional tachycardia and cardiology be consulted Undiagnosed new problem with uncertain prognosis? @ -No Drug Therapy requiring intensive monitoring for toxicity (Heparin, Nitro, Insulin, Cardizem)? @ -No Were any procedures done? @ -No Diagnosis/symptom? @ -Junctional tachycardia Acute, or Chronic, or Acute on Chronic? @ -Acute Uncomplicated (without systemic symptoms) or Complicated (systemic symptoms)? @ -Complicated Side effects of treatment? @ -No Exacerbation, Progression, or Severe Exacerbation? @ -No Poses a threat to life or bodily function? How? (Chest pain, USA, MS, pneumonia, PE, COPD, DKA, ARF, appy, cholecystitis, CVA, Diverticulitis, Homicidal, Suicidal, threat to staff... and all critical care pts) @ -Yes this can lead to poor perfusion and endorgan dysfunction Diagnosis/symptom? @ -Bleeding tooth extraction Acute, or Chronic, or Acute on Chronic? @ -Acute Uncomplicated (without systemic symptoms) or Complicated (systemic symptoms)? @ -Uncomplicated Side effects of treatment? @ -None Exacerbation, Progression, or Severe Exacerbation] @ -No Poses a threat to life or bodily function? @ -No - Lab Data Result diagrams: 01/05/24 20:33 01/05/24 20:33 Lab Results 01/05/24 01/05/24 Range/Units 20:33 20:33 WBC 8.5 (3.8-10.6) k/uL RBC 4.57 (4.30-5.90) m/uL Hgb 14.6 (13.0-17.5) gm/dL Hct 43.7 (39.0-53.0) % MCV 95.7 (80.0-100.0) fL MCH 32.0 (25.0-35.0) pg MCHC 33.5 (31.0-37.0) g/dL RDW 12.8 (11.5-15.5) % Plt Count 258 (150-450) k/uL MPV 7.1 Neutrophils % 74 % Lymphocytes % 16 % Monocytes % 7 % Eosinophils % 1 % Basophils % 1 % Neutrophils # 6.2 (1.3-7.7) k/uL Lymphocytes # 1.3 (1.0-4.8) k/uL Monocytes # 0.6 (0-1.0) k/uL Eosinophils # 0.1 (0-0.7) k/uL Basophils # 0.0 (0-0.2) k/uL Sodium 140 (137-145) mmol/L Potassium 4.1 (3.5-5.1) mmol/L Chloride 109 H (98-107) mmol/L Carbon Dioxide 24 (22-30) mmol/L Anion Gap 7 mmol/L BUN 15 (9-20) mg/dL Creatinine 0.67 (0.66-1.25) mg/dL Est GFR (CKD-EPI)AfAm >90 (>60 ml/min/1.73 sqM) Est GFR (CKD-EPI)NonAf >90 (>60 ml/min/1.73 sqM) Glucose 78 (74-99) mg/dL Calcium 9.5 (8.4-10.2) mg/dL Magnesium 1.8 (1.6-2.3) mg/dL Total Bilirubin 1.0 (0.2-1.3) mg/dL AST 19 (17-59) U/L ALT 15 (4-49) U/L Alkaline Phosphatase 60 (38-126) U/L Total Protein 6.4 (6.3-8.2) g/dL Albumin 4.2 (3.5-5.0) g/dL Disposition Clinical Impression: Junctional tachycardia, Bleeding post tooth extraction Disposition: ADMITTED IP TO THIS HOSP Referrals: [facility],Clinic [Primary Care Provider] - 1-2 days Time of Disposition: 21:00
[2024-01-05 20:45] LABS: Basophils % (A) 1 %; Eosinophils # (A) 0.1 k/uL (0-0.7); Eosinophils % (A) 1 %; HCT 43.7 % (39.0-53.0); HGB 14.6 gm/dL (13.0-17.5); Lymphocytes # (A) 1.3 k/uL (1.0-4.8); Lymphocytes % (A) 16 %; MCHC 33.5 g/dL (31.0-37.0); MCV 95.7 fL (80.0-100.0); Mean Platelet Volume 7.1; Monocytes # (A) 0.6 k/uL (0-1.0); Monocytes % (A) 7 %; Neutrophils # (A) 6.2 k/uL (1.3-7.7); Neutrophils % (A) 74 %; Platelet Count 258 k/uL (150-450); RBC 4.57 m/uL (4.30-5.90); RDW 12.8 % (11.5-15.5); WBC 8.5 k/uL (3.8-10.6)
[2024-01-05 20:56] LABS: ALT 15 U/L (4-49); AST 19 U/L (17-59); African American GFR (CKD) >90 (>60 ml/min/1.73 sqM); Albumin 4.2 g/dL (3.5-5.0); Alkaline Phosphatase 60 U/L (38-126); Anion Gap 7 mmol/L; Blood Urea Nitrogen 15 mg/dL (9-20); Calcium 9.5 mg/dL (8.4-10.2); Carbon Dioxide 24 mmol/L (22-30); Chloride 109 mmol/L (98-107); Glucose 78 mg/dL (74-99); Magnesium 1.8 mg/dL (1.6-2.3); Non-African American GFR(CKD) >90 (>60 ml/min/1.73 sqM); Potassium 4.1 mmol/L (3.5-5.1); Sodium 140 mmol/L (137-145); Total Protein 6.4 g/dL (6.3-8.2)
[2024-01-05] MEDS ORDERED: NITROGLYCERIN SL TABS 0.4 MG TAB SUBLINGUAL PRN (21:00)
[2024-01-05] MEDS: DILTIAZEM DRIP BOLUS FROM BAG 1 MG SOLN IV ONE (21:17)
[2024-01-05] MEDS: DILTIAZEM 125 MG in SODIUM CHLORIDE 0.9% 100 ML IV SCH (21:19)
[2024-01-05] MEDS: ADENOSINE 3 MG/ML 2 ML VIAL IVP STA ×2 (23:01→23:08)
--- NOTE | 2024-01-06 00:13 | P.HPIM ---
History of Present Illness H&P Date: 01/05/24 Chief Complaint: Atrial flutter, gum bleeding Patient is a 73-year-old male with PMH of DVT of left leg on warfarin since 2008, [id number] diabetes mellitus, BPH, hypertension, hyperlipidemia and PATO on CPAP presented to the ER with complaints of bleeding from his gums. Patient went to see his dentist in the morning for dentures and underwent dental procedure involving extraction of multiple teeth. Patient states that he was not taken off warfarin for the procedure. Patient came back home and continued to have episodes of bleeding from his gums which prompted him to come to the ER for further evaluation. Patient reports that by the time he reached the ER his bleeding had almost stopped. Patient was given tranexamic acid 1000 mg once for his gums which successfully stopped the bleeding. EKG in the ER showed patient to be in a narrow complex tachycardia with heart rate of 132 bpm. Patient denies chest pain, shortness of breath, palpitations, diaphoresis, nausea, vomiting, dizziness, numbness or tingling or weakness in upper or lower extremities. Patient denies history of CAD or CVA. Patient denies use of illicit drug use. Patient otherwise states that he is feeling fine at the time of interview and had no active complaints. EKG in the ER shows narrow complex tachycardia with a heart rate of 132 bpm. MI interval 190 ms. QRS duration of 105 ms. QTc 369, no prolongation noted and no pre-excitation delta-wave noted. Laboratory evaluation show WBC 8.5, hemoglobin 14.6, hematocrit 43.7, sodium 140, potassium 4.1, chloride 109, bicarb 24, BUN 15, creatinine 0.67, EGFR>90, glucose 78, troponin <0.012. Vitals: Tmax 99.7 F, heart rate 133, respiration 22, blood pressure 149/97, oxygen saturation 95% on room air. Review of systems: Pertinent positives and negatives as discussed in HPI, a complete review of systems was performed and all other systems are negative. Social history: Tobacco: Quit 1980s; 3 pack/day x 10 years Alcohol: None Recreational drugs: None Travel: None Occupation: None Family History: Noncontributory Physical examination: Vital signs reviewed General: non toxic, no distress, appears at stated age, normal weight Derm: no unusual rashes/lesions, warm Head: atraumatic, normocephalic, symmetric Eyes: EOMI, no lid lag, anicteric sclera, pupils equal round reactive to light ENT: Nose and ears atraumatic Neck: No cervical lymphadenopathy, trachea midline, supple Mouth: no lip lesion, mucus membranes moist, gum sutures in place Cardiovascular: S1S2 reg, tachycardic, no murmur, positive dorsalis pedis pulse bilateral, no edema Lungs: CTA bilateral, no rhonchi, no rales, no accessory muscle use Abdominal: soft, nontender to palpation, no guarding Ext: muscle strength 5 out of 5 in all 4 extremities grossly, no gross muscle atrophy, no contractures, Neuro: CN II-XI grossly intact, no gross focal neuro deficits Psych: Alert, oriented, appropriate affect Assessment/Plan: 73-year-old male with PMH of DVT of left leg on warfarin since 2008, [id number] diabetes mellitus, BPH, hypertension, hyperlipidemia and PATO on CPAP presented to the ER with complaints of bleeding from his gums was found to have narrow complex tachycardia with a heart rate of 132 on the EKG in ER. #Atrial flutter After consulting utilization management rn cardiology, patient was given adenosine 12 mg IV push to unmask underlying atrial rhythm which was noted to be A-flutter Continue with IV Cardizem 5 mg/h Consult cardiology Continue cardiac monitoring Patient currently on Coumadin Gum bleeding Currently controlled #Chronic conditions: NIDDM: Insulin sliding scale with blood glucose monitoring. Hold oral hypoglycemics. Hypertension: Resume lisinopril 10 mg p.o. daily, Hyperlipidemia: Resume pravastatin 40 mg OD BPH: Resume tamsulosin 0.4 mg p.o. nightly DVT prophylaxis: Coumadin The patient is admitted with an anticipated less than 2 midnight stay for evaluation of atrial flutter CODE STATUS: Full Discussed with: Patient Anticipated discharge place: Home Past Medical History Past Medical History: Diabetes Mellitus, Deep Vein Thrombosis (DVT), Hyperlipidemia Additional Past Medical History / Comment(s): Hard of Hearing, basal cell CA on face, erectile dysfunction, vitamin D deficiency, DVT left leg, PEx2, Parkinsons History of Any Multi-Drug Resistant Organisms: None Reported Past Surgical History: Orthopedic Surgery Additional Past Surgical History / Comment(s): left broken leg-pin surgery Past Anesthesia/Blood Transfusion Reactions: No Reported Reaction Past Psychological History: No Psychological Hx Reported Smoking Status: Former smoker Past Alcohol Use History: None Reported Past Drug Use History: Marijuana Additional Drug Use History / Comment(s): Pt states it has been about a year since he smoked marijuana. - Past Family History Mother Additional Family Medical History / Comment(s): alzheimers Father Additional Family Medical History / Comment(s): Stroke Medications and Allergies Home Medications Medication Instructions Recorded Confirmed Type Cyanocobalamin [Vitamin B-12 1,000 mcg IM Q60D 11/22/17 01/05/24 History Injection] metFORMIN HCL [Glucophage] 1,000 mg PO BID 11/22/17 01/05/24 History Cholecalciferol [Vitamin D3 (25 50 mcg PO DAILY 08/24/21 01/05/24 History Mcg = 1000 Iu)] Pravastatin Sodium [Pravachol] 20 mg PO Q2D@2100 08/24/21 01/05/24 History Tamsulosin HCl [Flomax] 0.4 mg PO HS 08/24/21 01/05/24 History Warfarin [Coumadin] 5 mg PO MOTH@0 08/24/21 01/05/24 History glipiZIDE [Glucotrol] 10 mg PO AC-BID 08/24/21 01/05/24 History lisinopriL [Prinivil] 10 mg PO DAILY 08/24/21 01/05/24 History Ammonium Lactate Lotion 1 applic TOPICAL DAILY 01/05/24 01/05/24 History [Lac-Hydrin 12% Lotion] Carboxymethylcellulose Sodium 1 drop BOTH EYES BID 01/05/24 01/05/24 History [Thera Tears] Triamcinolone 0.1% Ointment 1 applic TOPICAL BID PRN 01/05/24 01/05/24 History [Kenalog 0.1% Ointment] Warfarin [Coumadin] 7.5 mg PO SUTUWEFRSA@2130 01/05/24 01/05/24 History Allergies Allergy/AdvReac Type Severity Reaction Status Date / Time No Known Allergies Allergy Verified 01/05/24 19:16 Physical Exam Vitals: Vital Signs Temp Pulse Pulse Resp BP BP Pulse Ox 01/06/24 00:00 98.1 F 133 H 18 125/87 96 01/05/24 21:43 137 H 22 149/97 95 01/05/24 19:28 99.1 F 133 H 133 H 22 134/94 95 01/05/24 19:14 97.6 F 137 H 20 134/93 97 Intake and Output 01/05/24 01/05/24 01/06/24 14:59 22:59 06:59 Output Total 250 Balance -250 Output: Urine 250 Other: Weight 111.13 kg 111.13 kg Results CBC & Chem 7: 01/05/24 20:33 01/05/24 20:33 Labs: Abnormal Lab Results - Last 24 Hours (Table) 01/05/24 Range/Units 20:33 Chloride 109 H (98-107) mmol/L Thrombosis Risk Factor Assmnt - Choose All That Apply Any of the Below Risk Factors Present?: Yes Each Factor Represents 1 point: Obesity (BMI >25) Other Risk Factors: Yes Each Risk Factor Represents 2 Points: Age 61-74 years Each Risk Factor Represents 3 Points: History of DVT/PE Other congenital or acquired thrombophilia - If yes, enter type in comment: No Thrombosis Risk Factor Assessment Total Risk Factor Score: 6 Thrombosis Risk Factor Assessment Level: High Risk
[2024-01-06 00:56] LABS: INR 2.2 (<1.2); Partial Thromboplastin Time 34.1 sec (22.0-30.0); Prothrombin Time 21.7 sec (10.0-12.5)
[2024-01-06] MEDS ORDERED: DEXTROSE 50% SYRINGE 50 ML IVP PRN ×2 (01:07)
[2024-01-06 06:43] LABS: Glucose,Whole Blood 131 mg/dL (70-110)
[2024-01-06] MEDS: INSULIN ASPART (NovoLOG) 100 UNIT/ML VIAL SQ SCH (06:44)
[2024-01-06] MEDS ORDERED: glipiZIDE 10 MG TAB PO SCH (07:30)
[2024-01-06 08:06] LABS: INR 2.1 (<1.2); Prothrombin Time 20.7 sec (10.0-12.5)
[2024-01-06] MEDS: lisinopriL 10 MG TAB PO SCH (08:37)
[2024-01-06] MEDS ORDERED: ASPIRIN 325 MG TAB PO SCH (09:00)
[2024-01-06] MEDS ORDERED: metFORMIN 500 MG TAB PO SCH (09:00)
[2024-01-06 09:54] LABS: Chol/HDL Ratio 4.11 Ratio; LDL Cholesterol,Calculated 91.9 mg/dL (0.0-131.0)
[2024-01-06] MEDS: METOPROLOL TARTRATE 50 MG TAB PO SCH (10:25)
[2024-01-06] MEDS: METOPROLOL TARTRATE 25 MG TAB PO SCH (10:49)
[2024-01-06 11:48] LABS: Glucose,Whole Blood 201 mg/dL (70-110)
--- NOTE | 2024-01-06 12:21 | P.CRDCN ---
History of Present Illness History of present illness: HISTORY OF PRESENT ILLNESS: This is a 73-year-old male with a past medical history significant for DVT in 2008, hypertension, hyperlipidemia, and diabetes. 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 We have been asked to see the patient in consultation for tachycardia. Patient examined at the bedside. Patient states he recently got 10 teeth extracted at his dentist. The patient was having some bleeding post procedure which he was concerned about so he came to the emergency room. The patient was found to be tachycardic with a heart rate in the 140s. He was given adenosine per primary medicine. EKGs reviewed revealing atrial flutter. Patient remains in atrial flutter this morning with a heart rate in the 110s. He is currently on IV Cardizem at 5 mg an hour. He has been resumed on his Coumadin. INR today is 2.1. Patient denied any history of atrial fibrillation or atrial flutter. He denied having any palpitations. Denies any dizziness or lightheadedness. DIAGNOSTICS: - EKG reveals atrial flutter with RVR - Laboratory data: WBC 8.5. Hemoglobin 14.6. Platelet count 258. INR 2.1. Sodium 140. Potassium 4.1. BUN 15. Creatinine 0.67. Troponin negative x 3. - Current home cardiac medications include lisinopril 10 mg daily, Coumadin 7.5 mg on Monday and Monday and 5 mg on Monday and and pravastatin 20 mg every 2 days. - Most recent echocardiogram obtained in 2018 revealed ejection fraction 55 to 60%, aneurysmal intra-atrial septum REVIEW OF SYSTEMS: At the time of my exam: CONSTITUTIONAL: Denies fever or chills. HEENT: Denies blurred vision, vision changes, or eye pain. Denies hemoptysis CARDIOVASCULAR: Denies chest pain. Denies orthopnea. Denies PND. Denies palpitations RESPIRATORY: Denies shortness of breath. GASTROINTESTINAL: Denies abdominal pain. Denies nausea or vomiting. HEMATOLOGIC: Denies bleeding disorders. GENITOURINARY: Denies any blood in urine. SKIN: Denies pruitis. Denies rash. PHYSICAL EXAM: VITAL SIGNS: Reviewed. GENERAL: Well-developed in no acute distress. HEENT: Head is normocephalic. Pupils are equal, round. Sclerae anicteric. Mucous membranes of the mouth are moist. Neck supple. No JVD or thyromegaly LUNGS: Respirations even and unlabored. Lungs essentially clear to auscultation bilaterally. HEART: Tachycardic. Regular rate and rhythm. S1 and S2 heard. ABDOMEN: Soft. Nondistended. Nontender. EXTREMITIES: Normal range of motion. No clubbing or cyanosis. Peripheral pulses intact. No lower extremity edema NEUROLOGIC: Awake and alert. Oriented x 3. ASSESSMENT: Bleeding gums status post extraction of 10 teeth New onset typical atrial flutter with RVR History of DVT in 2007, on Coumadin outpatient Hypertension Hyperlipidemia Diabetes PLAN: Obtain 2D echo to assess cardiac structure and function Check TSH Increase pravastatin to 40 mg daily Discontinue lisinopril to allow for beta-preet therapy Add metoprolol to tartrate 50 mg twice a day Discontinue IV Cardizem Continue anticoagulation with Coumadin. Monitor INR. Continue telemetry monitoring Patient will require eventual outpatient ablation Further recommendations pending patient course Nurse practitioner note has been reviewed by physician. Signing provider agrees with the documented findings, assessment, and plan of care documented by TECHNOLOGY LEAD as a scribe. Past Medical History Past Medical History: Diabetes Mellitus, Deep Vein Thrombosis (DVT), Hyper lipidemia Additional Past Medical History / Comment(s): Hard of Hearing, basal cell CA on face, erectile dysfunction, vitamin D deficiency, DVT left leg, PEx2, Parkinsons History of Any Multi-Drug Resistant Organisms: None Reported Past Surgical History: Orthopedic Surgery Additional Past Surgical History / Comment(s): left broken leg-pin surgery Past Anesthesia/Blood Transfusion Reactions: No Reported Reaction Past Psychological History: No Psychological Hx Reported Smoking Status: Former smoker Past Alcohol Use History: None Reported Past Drug Use History: Marijuana Additional Drug Use History / Comment(s): Pt states it has been about a year since he smoked marijuana. - Past Family History Mother Additional Family Medical History / Comment(s): alzheimers Father Additional Family Medical History / Comment(s): Stroke Medications and Allergies Home Medications Medication Instructions Recorded Confirmed Type Cyanocobalamin [Vitamin B-12 1,000 mcg IM Q60D 11/22/17 01/05/24 History Injection] metFORMIN HCL [Glucophage] 1,000 mg PO BID 11/22/17 01/05/24 History Cholecalciferol [Vitamin D3 (25 50 mcg PO DAILY 08/24/21 01/05/24 History Mcg = 1000 Iu)] Pravastatin Sodium [Pravachol] 20 mg PO Q2D@2100 08/24/21 01/05/24 History Tamsulosin HCl [Flomax] 0.4 mg PO HS 08/24/21 01/05/24 History Warfarin [Coumadin] 5 mg PO MOTH@0 08/24/21 01/05/24 History glipiZIDE [Glucotrol] 10 mg PO AC-BID 08/24/21 01/05/24 History lisinopriL [Prinivil] 10 mg PO DAILY 08/24/21 01/05/24 History Ammonium Lactate Lotion 1 applic TOPICAL DAILY 01/05/24 01/05/24 History [Lac-Hydrin 12% Lotion] Carboxymethylcellulose Sodium 1 drop BOTH EYES BID 01/05/24 01/05/24 History [Thera Tears] Triamcinolone 0.1% Ointment 1 applic TOPICAL BID PRN 01/05/24 01/05/24 History [Kenalog 0.1% Ointment] Warfarin [Coumadin] 7.5 mg PO [id number]/05/24 01/05/24 History Allergies Allergy/AdvReac Type Severity Reaction Status Date / Time No Known Allergies Allergy Verified 01/05/24 19:16 Physical Exam Vitals: Vital Signs Temp Pulse Pulse Resp BP BP Pulse Ox 01/06/24 12:00 77 18 100/66 97 01/06/24 09:15 97 01/06/24 08:40 96 18 01/06/24 08:38 98.0 F 96 18 123/73 96 01/06/24 04:00 98.0 F 107 H 18 106/53 98 01/06/24 00:00 98.1 F 133 H 18 125/87 96 01/05/24 23:15 126 H 20 143/88 97 01/05/24 23:01 133 H 01/05/24 21:43 137 H 22 149/97 95 01/05/24 19:28 99.1 F 133 H 133 H 22 134/94 95 01/05/24 19:14 97.6 F 137 H 20 134/93 97 Intake and Output 01/05/24 01/06/24 01/06/24 22:59 06:59 14:59 Intake Total 10 Output Total 1225 Balance -1215 Intake: IV 10 Invasive Line 1 10 Output: Urine 1225 Other: Voiding Method Urinal Urinal Weight 111.13 kg 109.9 kg Results 01/05/24 20:33 01/05/24 20:33 Cardiac Enzymes 01/05/24 01/05/24 01/06/24 Range/Units 20:33 20:33 00:03 AST 19 (17-59) U/L Troponin I <0.012 0.012 (0.000-0.034) ng/mL 01/06/24 Range/Units 03:37 AST (17-59) U/L Troponin I 0.013 (0.000-0.034) ng/mL Coagulation 01/05/24 01/06/24 Range/Units 00:00 07:21 PT 21.7 H 20.7 H (10.0-12.5) sec APTT 34.1 H (22.0-30.0) sec Lipids 01/06/24 Range/Units 03:37 Triglycerides 123.00 (0.00-149.00) mg/dL Cholesterol 154.00 (0.00-200.00) mg/dL HDL Cholesterol 37.50 L (40.00-60.00) mg/dL Cholesterol/HDL Ratio 4.11 Ratio CBC 01/05/24 Range/Units 20:33 WBC 8.5 (3.8-10.6) k/uL RBC 4.57 (4.30-5.90) m/uL Hgb 14.6 (13.0-17.5) gm/dL Hct 43.7 (39.0-53.0) % Plt Count 258 (150-450) k/uL Comprehensive Metabolic Panel 01/05/24 Range/Units 20:33 Sodium 140 (137-145) mmol/L Potassium 4.1 (3.5-5.1) mmol/L Chloride 109 H (98-107) mmol/L Carbon Dioxide 24 (22-30) mmol/L BUN 15 (9-20) mg/dL Creatinine 0.67 (0.66-1.25) mg/dL Glucose 78 (74-99) mg/dL Calcium 9.5 (8.4-10.2) mg/dL AST 19 (17-59) U/L ALT 15 (4-49) U/L Alkaline Phosphatase 60 (38-126) U/L Total Protein 6.4 (6.3-8.2) g/dL Albumin 4.2 (3.5-5.0) g/dL Current Medications Generic Name Dose Route Start Last Admin Trade Name Atnwon PRN Reason Stop Dose Admin Dextrose/Water 25 ml 01/06/24 01:07 Dextrose 50% Syringe 50 Ml IVP PER PROTOCOL PRN Hypoglycemia Protocol Dextrose/Water 50 ml 01/06/24 01:07 Dextrose 50% Syringe 50 Ml IVP PER PROTOCOL PRN Hypoglycemia Protocol Insulin Aspart 0 unit 01/06/24 07:30 01/06/24 11:58 Insulin Aspart (Novolog) 100 Unit/Ml Vial SQ 4 unit ACHS CATHERINE Administration Protocol Metoprolol Tartrate 50 mg 01/06/24 10:15 01/06/24 10:25 Metoprolol Tartrate 50 Mg Tab PO 50 mg BID CATHERINE Administration Miscellaneous Information 1 each 01/06/24 00:50 Warfarin Per Pharmacy MISCELLANE DIRECTED PRN Per Protocol Protocol Nitroglycerin 0.4 mg 01/05/24 21:00 Nitroglycerin Sl Tabs 0.4 Mg Tab SUBLINGUAL Q5M PRN Chest Pain Pravastatin Sodium 40 mg 01/07/24 09:00 Pravastatin Sodium 40 Mg Tab PO DAILY CATHERINE Tamsulosin HCl 0.4 mg 01/06/24 21:00 Tamsulosin 0.4 Mg Cap.Er.24h PO HS [facility] Warfarin Sodium 7.5 mg 01/06/24 18:00 Warfarin 7.5 Mg Tab PO [id number]@1800 [facility] Warfarin Sodium 5 mg 01/08/24 18:00 Warfarin 5 Mg Tab PO MoTh@1800 [facility] Intake and Output 01/05/24 01/06/24 01/06/24 22:59 06:59 14:59 Intake Total 10 Output Total 1225 Balance -1215 Intake: IV 10 Invasive Line 1 10 Output: Urine 1225 Other: Voiding Method Urinal Urinal Weight 111.13 kg 109.9 kg 01/05/24 20:33 01/05/24 20:33
[2024-01-06 16:17] LABS: Glucose,Whole Blood 203 mg/dL (70-110)
[2024-01-06] MEDS: WARFARIN 7.5 MG TAB PO SCH (17:38)
[2024-01-06 20:18] LABS: Glucose,Whole Blood 121 mg/dL (70-110)
[2024-01-06] MEDS: TAMSULOSIN 0.4 MG CAP.ER.24H PO SCH (20:34)
[2024-01-07 06:16] LABS: Glucose,Whole Blood 145 mg/dL (70-110)
[2024-01-07 06:17] LABS: Prothrombin Time 20.3 sec (10.0-12.5)
[2024-01-07] MEDS: PRAVASTATIN SODIUM 40 MG TAB PO SCH (08:01)
[2024-01-07] MEDS ORDERED: lisinopriL 5 MG TAB PO SCH (09:00)
[2024-01-07] MEDS: METOPROLOL TARTRATE 25 MG TAB PO STA (09:19)
--- NOTE | 2024-01-07 10:36 | P.PN ---
Subjective HISTORY OF PRESENT ILLNESS: This is a 73-year-old male with a past medical history significant for DVT in 2007, hypertension, hyperlipidemia, and diabetes. 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 We have been asked to see the patient in consultation for tachycardia. Patient examined at the bedside. Patient states he recently got 10 teeth extracted at his dentist. The patient was having some bleeding post procedure which he was concerned about so he came to the emergency room. The patient was found to be tachycardic with a heart rate in the 140s. He was given adenosine per primary medicine. EKGs reviewed revealing atrial flutter. Patient remains in atrial flutter this morning with a heart rate in the 110s. He is currently on IV Cardizem at 5 mg an hour. He has been resumed on his Coumadin. INR today is 2.1. Patient denied any history of atrial fibrillation or atrial flutter. He denied having any palpitations. Denies any dizziness or lightheadedness. DIAGNOSTICS: - EKG reveals atrial flutter with RVR - Laboratory data: WBC 8.5. Hemoglobin 14.6. Platelet count 258. INR 2.1. Sodium 140. Potassium 4.1. BUN 15. Creatinine 0.67. Troponin negative x 3. - Current home cardiac medications include lisinopril 10 mg daily, Coumadin 7.5 mg on Monday and Monday and 5 mg on Monday and and pravastatin 20 mg every 2 days. - Most recent echocardiogram obtained in 2017 revealed ejection fraction 55 to 60%, aneurysmal intra-atrial septum 01/07/2024 Patient examined this morning at the bedside. Patient currently denies any chest pain or pressure. He denies any shortness of breath. He remains in atrial flutter with a heart rate around 115. 2D echo remains pending. INR toda y 2.0. PHYSICAL EXAM: VITAL SIGNS: Reviewed. GENERAL: Well-developed in no acute distress. HEENT: Head is normocephalic. Pupils are equal, round. Sclerae anicteric. Mucous membranes of the mouth are moist. Neck supple. No JVD or thyromegaly LUNGS: Respirations even and unlabored. Lungs essentially clear to auscultation bilaterally. HEART: Tachycardic. Regular rate and rhythm. S1 and S2 heard. ABDOMEN: Soft. Nondistended. Nontender. EXTREMITIES: Normal range of motion. No clubbing or cyanosis. Peripheral pulses intact. No lower extremity edema NEUROLOGIC: Awake and alert. Oriented x 3. ASSESSMENT: Bleeding gums status post extraction of 10 teeth, resolved New onset typical atrial flutter with RVR History of DVT in 2007, on Coumadin outpatient Hypertension Hyperlipidemia Diabetes PLAN: 2D echo ordered. Await results. Increase metoprolol to tartrate to 75 mg twice a day Lisinopril discontinued yesterday to allow for increase in beta-preet therapy Continue anticoagulation with Coumadin. Monitor INR. Give patient 10 mg today as INR is only 2.0 and plan is for cardioversion tomorrow N.p.o. at midnight Request sent to [facility] for recent INR results. If INR has been therapeutic over the past 1 to 2 months, patient will not require CORY. Patient to undergo cardioversion tomorrow with Dr. Lawrence Continue telemetry monitoring Patient will require eventual outpatient ablation Further recommendations pending patient course Nurse practitioner note has been reviewed by physician. Signing provider agrees with the documented findings, assessment, and plan of care documented by REGIONAL WILDLIFE AGENT as a scribe. Objective - Vital Signs Vital signs: Vital Signs Temp 97.7 F 01/07/24 08:03 Pulse 127 H 01/07/24 08:04 Resp 16 01/07/24 08:04 BP 128/73 01/07/24 08:03 Pulse Ox 94 L 01/07/24 08:03 FiO2 Intake & Output 01/06/24 01/07/24 01/07/24 18:59 06:59 18:59 Intake Total 236 1146 110 Output Total 875 1200 575 Balance -639 -54 -465 Weight 108.9 kg Intake: IV 10 10 Invasive Line 1 10 10 Oral 236 236 100 Tube Feeding 900 Output: Urine 875 1200 575 Other: Voiding Method Urinal Urinal Urinal - Labs CBC & Chem 7: 01/05/24 20:33 01/05/24 20:33 Labs: Abnormal Lab Results - Last 24 Hours (Table) 01/06/24 01/06/24 01/06/24 Range/Units 11:46 16:15 20:17 PT (10.0-12.5) sec INR (<1.2) POC Glucose (mg/dL) 201 H 203 H 121 H (70-110) mg/dL Hemoglobin A1c (<=6.0) % 01/07/24 01/07/24 01/07/24 Range/Units 05:16 05:16 06:15 PT 20.3 H (10.0-12.5) sec INR 2.0 H (<1.2) POC Glucose (mg/dL) 145 H (70-110) mg/dL Hemoglobin A1c 7.3 H (<=6.0) %
--- NOTE | 2024-01-07 10:53 | P.PN ---
Subjective Progress Note Date: 01/07/24 Subjective: Patient seen and examined at bedside. No acute events overnight. Has been intermittently tachycardic overnight. Asymptomatic. Denies any gum bleeding. Pertinent positives and negatives as discussed above, a complete review of systems was performed and all other systems are negative. Vitals Signs Reviewed. General: Nontoxic, no distress, appears at stated age, morbidly obese Derm: Warm, dry Head: Atraumatic, normocephalic, symmetric Eyes: EOMI, no lid lag, anicteric sclera Mouth: No lip lesion, mucus membranes moist Cardiovascular: S1S2 reg, tachycardic, no murmur Lungs: CTA bilateral, no rhonchi, no rales, no accessory muscle use Abdominal: Soft, nontender to palpation, no guarding, no appreciable organomegaly Ext: No gross muscle atrophy, no edema, no contractures Neuro: CN II-XI grossly intact, no focal neuro deficits Psych: Alert, oriented, appropriate affect Data Reviewed Today: Pertinent Labs: A1c 7.3, INR 2, blood sugars range between 1 21-2 03, BMP and magnesium pending, will be reviewed when available Imaging: No new imaging Assessment and Plan: New onset atrial flutter with RVR History of DVT on Coumadin Gum bleeding status post tooth discussion, resolved Hypertension Dyslipidemia -Cardiology note reviewed, metoprolol increased to 75 twice daily, cardioversion tomorrow, keep INR therapeutic, if his INR has been therapeutic for the last cou ple months, patient does not need a CORY for cardioversion -Outpatient ablation -Pharmacy to dose warfarin -Home lisinopril discontinued -Continue pravastatin 40 mg daily Diabetes -A1c 7.3 -Continue sliding scale insulin, monitor for hypoglycemia BPH -Continue tamsulosin 0.4 mg nightly DVT ppx: Warfarin Code status: Full code Anticipated discharge place: Likely home Anticipated discharge time: In 24 to 48 hours Objective - Vital Signs Vital signs: Vital Signs Temp 97.7 F 01/07/24 08:03 Pulse 127 H 01/07/24 08:04 Resp 16 01/07/24 08:04 BP 128/73 01/07/24 08:03 Pulse Ox 94 L 01/07/24 08:03 FiO2 Intake & Output 01/06/24 01/07/24 01/07/24 18:59 06:59 18:59 Intake Total 236 1146 110 Output Total 875 1200 575 Balance -639 -54 -465 Weight 108.9 kg Intake: IV 10 10 Invasive Line 1 10 10 Oral 236 236 100 Tube Feeding 900 Output: Urine 875 1200 575 Other: Voiding Method Urinal Urinal Urinal - Labs CBC & Chem 7: 01/05/24 20:33 01/05/24 20:33 Labs: Abnormal Lab Results - Last 24 Hours (Table) 01/06/24 01/06/24 01/06/24 Range/Units 11:46 16:15 20:17 PT (10.0-12.5) sec INR (<1.2) POC Glucose (mg/dL) 201 H 203 H 121 H (70-110) mg/dL Hemoglobin A1c (<=6.0) % 01/07/24 01/07/24 01/07/24 Range/Units 05:16 05:16 06:15 PT 20.3 H (10.0-12.5) sec INR 2.0 H (<1.2) POC Glucose (mg/dL) 145 H (70-110) mg/dL Hemoglobin A1c 7.3 H (<=6.0) %
--- NOTE | 2024-01-07 11:01 | CA ---
Transthoracic Echo Report Name: Ajay North Age: 73 Gender: M : 1950 Exam Date: 01/06/2024 12:22 Exam Location: [facility] Ht (in): 67 Wt (lb): 245 Ordering Physician: Sarah Lopez MD Attending/Referring Phys: Robotics Technician Ansley Cormier RDCS Procedure CPT: Indications: atrial flutter with rvr Cardiac Hx: Technical Quality: Technically difficult study Contrast 1: Definity Total Dose (mL): Contrast 2: Total Dose (mL): MEASUREMENTS (Male / Female) Normal Values 2D ECHO LV Diastolic Diameter PLAX 5.8 cm 4.2 - 5.9 / 3.9 - 5.3 cm LV Systolic Diameter PLAX 4.5 cm IVS Diastolic Thickness 1.3 cm 0.6 - 1.0 / 0.6 - 0.9 cm LVPW Diastolic Thickness 1.2 cm 0.6 - 1.0 / 0.6 - 0.9 cm LV Relative Wall Thickness 0.4 RV Internal Dim ED PLAX 3.9 cm LV Diastolic Volume MOD BP 148.8 cm??? 67 - 155 / 56 - 104 cm??? LV Systolic Volume MOD BP 96.3 cm??? 22 - 58 / 19 - 49 cm??? LV Ejection Fraction MOD BP 35.3 % >= 55 % LV Cardiac Index MOD BP 1725.3 cm???/min???m??? LV Diastolic Volume MOD 4C 159.5 cm??? LV Systolic Volume MOD 4C 86.1 cm??? LV Ejection Fraction MOD 4C 46.0 % LV Cardiac Index MOD 4C 2412.4 cm???/min???m??? LV Diastolic Length 4C 8.3 cm LV Systolic Length 4C 7.6 cm LV Diastolic Volume MOD 2C 138.0 cm??? LV Systolic Volume MOD 2C 95.5 cm??? LV Ejection Fraction MOD 2C 30.8 % LV Cardiac Index MOD 2C 1398.4 cm???/min???m??? LV Diastolic Length 2C 8.4 cm LV Systolic Length 2C 6.7 cm LA Volume 101.9 cm??? 18 - 58 / 22 - 52 cm??? LA Volume Index 43.5 cm???/m??? 16 - 28 cm???/m??? M-MODE Aortic Root Diameter MM 3.7 cm LA Systolic Diameter MM 4.4 cm LA Ao Ratio MM 1.2 AV Cusp Separation MM 2.1 cm DOPPLER AV Peak Velocity 99.5 cm/s AV Peak Gradient 4.0 mmHg AV Mean Velocity 67.9 cm/s AV Mean Gradient 2.1 mmHg AV Velocity Time Integral 16.8 cm LVOT Peak Velocity 64.3 cm/s LVOT Peak Gradient 1.7 mmHg LVOT Velocity Time Integral 10.8 cm MV Area PHT 4.6 cm??? Mitral E Point Velocity 105.2 cm/s Mitral A Point Velocity 0.4 cm/s Mitral E to A Ratio 265.0 MV Deceleration Time 164.3 ms MV E' Velocity 9.4 cm/s Mitral E to MV E' Ratio 11.2 TR Peak Velocity 269.9 cm/s TR Peak Gradient 29.1 mmHg Right Ventricular Systolic Press 32.8 mmHg FINDINGS Left Ventricle Mildly increased septal wall thickness. Severely increased left ventricular systolic volume. Moderately decreased left ventricular ejection fraction. Reduced global left ventricular systolic function. Left ventricular ejection fraction is estimated at 30 %. Grade 2 diastolic dysfunction. Right Ventricle Right ventricular dilatation. Right ventricular systolic pressure within normal limits. Right Atrium Moderate right atrial dilatation. Left Atrium Severely increased left atrial volume. Mildly increased left atrial area. Mitral Valve Structurally normal mitral valve. Moderate mitral annular calcification. [id number] mitral regurgitation. Posteriorly directed mitral regurgitation jet. Aortic Valve Trileaflet aortic valve. No aortic valve stenosis or regurgitation. Aortic valve sclerosis. Tricuspid Valve Structurally normal tricuspid valve. Mild tricuspid regurgitation. Pulmonic Valve Structurally normal pulmonic valve. Trace pulmonic regurgitation. Pericardium No pericardial effusion. Aorta Normal size aortic root and proximal ascending aorta. CONCLUSIONS Severe LV dysfunction, global RV enlargement Biatrial enlargement Possible small apical LV thrombus based on the 2 chamber view using Definity contrast Previewed by: Dr. Eliud Lawrence MD (Electronically Signed) Final Date: 07 January 2024 11:00
[2024-01-07 11:24] LABS: Glucose,Whole Blood 203 mg/dL (70-110)
[2024-01-07 11:40] LABS: African American GFR (CKD) >90 (>60 ml/min/1.73 sqM); Anion Gap 6 mmol/L; Blood Urea Nitrogen 12 mg/dL (9-20); Calcium 9.1 mg/dL (8.4-10.2); Carbon Dioxide 23 mmol/L (22-30); Chloride 110 mmol/L (98-107); Glucose 152 mg/dL (74-99); Magnesium 1.8 mg/dL (1.6-2.3); Non-African American GFR(CKD) >90 (>60 ml/min/1.73 sqM); Potassium 3.9 mmol/L (3.5-5.1); Sodium 139 mmol/L (137-145)
[2024-01-07] MEDS: ASPIRIN 81 MG PO SCH (11:44)
[2024-01-07] MEDS: ENOXAPARIN 80 MG/0.8 ML SYRINGE SQ SCH (11:44)
[2024-01-07 16:33] LABS: Glucose,Whole Blood 180 mg/dL (70-110)
[2024-01-07] MEDS: WARFARIN 10 MG TAB PO ONE (17:47)
[2024-01-07 20:14] LABS: Glucose,Whole Blood 232 mg/dL (70-110)
[2024-01-07] MEDS: METOPROLOL TARTRATE 50 MG TAB PO SCH (20:59)
[2024-01-07] MEDS ORDERED: PRAVASTATIN SODIUM 20 MG TAB PO SCH (21:00)
[2024-01-08] MEDS: SODIUM CHLORIDE 0.9% 1,000 ML IV SCH ×2 (03:52→09:06)
[2024-01-08 06:08] LABS: Glucose,Whole Blood 167 mg/dL (70-110)
[2024-01-08 07:36] LABS: INR 2.2 (<1.2); Prothrombin Time 21.9 sec (10.0-12.5)
[2024-01-08 07:45] LABS: African American GFR (CKD) >90 (>60 ml/min/1.73 sqM); Anion Gap 5 mmol/L; Blood Urea Nitrogen 13 mg/dL (9-20); Calcium 9.1 mg/dL (8.4-10.2); Carbon Dioxide 27 mmol/L (22-30); Chloride 107 mmol/L (98-107); Glucose 150 mg/dL (74-99); Magnesium 1.8 mg/dL (1.6-2.3); Non-African American GFR(CKD) >90 (>60 ml/min/1.73 sqM); Potassium 4.2 mmol/L (3.5-5.1); Sodium 139 mmol/L (137-145)
--- NOTE | 2024-01-08 07:59 | P.PN ---
Subjective Progress Note Date: 01/08/24 This is a 73-year-old gentleman who was admitted to the hospital because of gum bleeding after teeth extraction. He was in atrial fibrillation/flutter. He is known to have history of atrial fibrillation/flutter. He underwent an echo which revealed impaired LV function with possible small LV thrombus noted. January 08, 2024 The patient was seen and evaluated this morning. He is asymptomatic. He contin ues to be in A-fib/flutter with overall controlled heart rate. The plan is to pursue with a transesophageal echocardiogram for further evaluation of any intracardiac thrombus and possible cardioversion if there is no thrombus. Currently he is on anticoagulation. Examination is remarkable for irregular rhythm with diminished breathing sounds bilaterally. Assessment A-fib/flutter History of paroxysmal atrial fibrillation Cardiomyopathy Possible LV thrombus Multiple comorbid conditions Plan Continue current medical regimen including anticoagulation Discussed with Dr. Lawrence the plan in terms of restoring sinus rhythm Follow-up with the patient Objective - Vital Signs Vital signs: Vital Signs Temp 98.3 F 01/08/24 04:00 Pulse 86 01/08/24 04:00 Resp 16 01/08/24 04:00 BP 95/62 01/08/24 04:00 Pulse Ox 99 01/08/24 04:00 FiO2 Intake & Output 01/07/24 01/08/24 01/08/24 18:59 06:59 18:59 Intake Total 888 246 Output Total 975 500 Balance -87 -254 Weight 108.9 kg Intake: IV 10 10 Invasive Line 1 10 10 Oral 878 236 Output: Urine 975 500 Other: Voiding Method Urinal Urinal - Labs CBC & Chem 7: 01/05/24 20:33 01/08/24 06:49 Labs: Abnormal Lab Results - Last 24 Hours (Table) 01/07/24 01/07/24 01/07/24 Range/Units 05:16 05:16 11:23 PT (10.0-12.5) sec INR (<1.2) Chloride 110 H (98-107) mmol/L Glucose 152 H (74-99) mg/dL POC Glucose (mg/dL) 203 H (70-110) mg/dL Hemoglobin A1c 7.3 H (<=6.0) % 01/07/24 01/07/24 01/08/24 Range/Units 16:31 20:12 06:06 PT (10.0-12.5) sec INR (<1.2) Chloride (98-107) mmol/L Glucose (74-99) mg/dL POC Glucose (mg/dL) 180 H 232 H 167 H (70-110) mg/dL Hemoglobin A1c (<=6.0) % 01/08/24 01/08/24 Range/Units 06:49 06:49 PT 21.9 H (10.0-12.5) sec INR 2.2 H (<1.2) Chloride (98-107) mmol/L Glucose 150 H (74-99) mg/dL POC Glucose (mg/dL) (70-110) mg/dL Hemoglobin A1c (<=6.0) %
[2024-01-08] MEDS: SPIRONOLACTONE 25 MG TAB PO SCH (10:04)
[2024-01-08] MEDS: DAPAGLIFLOZIN PROPANEDIOL 10 MG TABLET PO SCH (10:04)
[2024-01-08] MEDS: ENOXAPARIN 80 MG/0.8 ML SYRINGE SQ STA (10:04)
[2024-01-08] MEDS: lisinopriL 5 MG TAB PO SCH (10:07)
[2024-01-08 11:28] LABS: Glucose,Whole Blood 147 mg/dL (70-110)
--- NOTE | 2024-01-08 12:52 | P.PN ---
Subjective Progress Note Date: 01/08/24 Subjective: Patient seen and examined at bedside. No acute events overnight. Has been intermittently tachycardic overnight. Asymptomatic. Denies any gum bleeding. Pertinent positives and negatives as discussed above, a complete review of systems was performed and all other systems are negative. Vitals Signs Reviewed. General: Nontoxic, no distress, appears at stated age, morbidly obese Derm: Warm, dry Head: Atraumatic, normocephalic, symmetric Eyes: EOMI, no lid lag, anicteric sclera Mouth: No lip lesion, mucus membranes moist Cardiovascular: S1S2 reg, tachycardic, no murmur Lungs: CTA bilateral, no rhonchi, no rales, no accessory muscle use Abdominal: Soft, nontender to palpation, no guarding, no appreciable organomegaly Ext: No gross muscle atrophy, no edema, no contractures Neuro: CN II-XI grossly intact, no focal neuro deficits Psych: Alert, oriented, appropriate affect Data Reviewed Today: Pertinent Labs: INR 2.2, glucose range 147-167, sodium 139, potassium 4.2, creatinine 0.7, magnesium 1.8 Imaging: echocardiogram report reviewed, shows LVEF 30%, grade 2 diastolic dysfunction, possible small apical LV thrombus Assessment and Plan: New onset atrial flutter with RVR Suspected small apical LV thrombus History of DVT. , previously on Coumadin Gum bleeding status post teeth extraction, resolved Hypertension Dyslipidemia -discussed management with cardiology, possible cardioversion versus outpatient ablation given small apical LV thrombus. Coumadin discontinued, patient started on Eliquis 5 twice a day -continue metoprolol 75 twice a day -Home lisinopril discontinued -Continue pravastatin 40 mg daily HF with reduced EF 30%, not in exacerbation Systolic cardiomyopathy, unknown if ischemic or nonischemic, likely secondary to atrial flutter with RVR - placed on Lisinopril 5mg PO daily - Dapagliflozin 10 mg PO daily - Aldactone 12.5 mg PO daily -Continue metoprolol as above Diabetes -A1c 7.3 -Continue sliding scale insulin, monitor for hypoglycemia BPH -Continue tamsulosin 0.4 mg nightly DVT ppx: Eliquis Code status: Full code Anticipated discharge place: Likely home Anticipated discharge time: In 24 to 48 hours I have seen and evaluated the patient today. Discussed with the resident and agree with resident's findings and plan as documented in the resident's note. Changes highlighted in blue font. Objective - Vital Signs Vital signs: Vital Signs Temp 98 F 01/08/24 12:00 Pulse 96 01/08/24 12:00 Resp 16 01/08/24 12:00 BP 106/67 01/08/24 12:00 Pulse Ox 95 01/08/24 12:00 FiO2 Intake & Output 01/07/24 01/08/24 01/08/24 18:59 06:59 18:59 Intake Total 888 246 10 Output Total 975 500 Balance -87 -254 10 Weight 108.9 kg Intake: IV 10 10 10 Invasive Line 1 10 10 10 Oral 878 236 Output: Urine 975 500 Other: Voiding Method Urinal Urinal - Labs CBC & Chem 7: 01/05/24 20:33 01/08/24 06:49 Labs: Abnormal Lab Results - Last 24 Hours (Table) 01/07/24 01/07/24 01/08/24 Range/Units 16:31 20:12 06:06 PT (10.0-12.5) sec INR (<1.2) Glucose (74-99) mg/dL POC Glucose (mg/dL) 180 H 232 H 167 H (70-110) mg/dL 01/08/24 01/08/24 01/08/24 Range/Units 06:49 06:49 11:27 PT 21.9 H (10.0-12.5) sec INR 2.2 H (<1.2) Glucose 150 H (74-99) mg/dL POC Glucose (mg/dL) 147 H (70-110) mg/dL
[2024-01-08 16:40] LABS: Glucose,Whole Blood 125 mg/dL (70-110)
[2024-01-08] MEDS ORDERED: WARFARIN 5 MG TAB PO SCH (18:00)
[2024-01-08] MEDS ORDERED: WARFARIN 5 MG TAB PO ONE (18:00)
[2024-01-08] MEDS ORDERED: WARFARIN 7.5 MG TAB PO SCH (18:00)
--- NOTE | 2024-01-08 18:49 | P.PN ---
Progress Note - Text Patient is resting comfortably in bed, heart rates are still above 100 bpm. Blood pressure is low normal He remains in atrial flutter. His 2D echo showed severe LV dysfunction with a small well-circumscribed thrombus in the LV apex, using Definity contrast His INR is were reviewed from the year outpatient clinic January 02: INR 2.0 December 24: INR 2.1 December 19: INR 2.0 October 19: INR 2.5 July: INR 3.0 Impression LV thrombus in the setting of severe cardiomyopathy and typical atrial flutter despite therapeutic INRs on Coumadin Patient has failed warfarin therapy Recommend Hold off on electrical cardioversion or atrial flutter Switch to Eliquis 5 mg twice daily along with a baby aspirin, since patient has failed warfarin despite therapeutic INR Guideline directed heart failure therapy including beta-blockers, lisinopril, Farxiga Increase Pravachol to 40 mg p.o. daily Continue spironolactone 12.5 mg p.o. daily I will see him in the office in a week Reassessment of LV function and presence/absence of LV thrombus in the next 4 to 6 weeks Atrial flutter ablation thereafter Patient instructed not to stop Eliquis plus aspirin for any procedure in the next 4 to 6 weeks
[2024-01-08 20:29] LABS: Glucose,Whole Blood 131 mg/dL (70-110)
[2024-01-08] MEDS: APIXABAN 5 MG TAB PO SCH (20:36)
[2024-01-09 05:49] LABS: Glucose,Whole Blood 115 mg/dL (70-110)
[2024-01-09 06:28] LABS: INR 2.8 (<1.2)
[2024-01-09 06:35] LABS: African American GFR (CKD) >90 (>60 ml/min/1.73 sqM); Anion Gap 3 mmol/L; Blood Urea Nitrogen 13 mg/dL (9-20); Calcium 9.3 mg/dL (8.4-10.2); Carbon Dioxide 27 mmol/L (22-30); Chloride 109 mmol/L (98-107); Glucose 116 mg/dL (74-99); Magnesium 1.9 mg/dL (1.6-2.3); Non-African American GFR(CKD) 87 (>60 ml/min/1.73 sqM); Potassium 4.3 mmol/L (3.5-5.1); Sodium 139 mmol/L (137-145)
[2024-01-09 10:13] VITALS: RESP 17; TEMP 97.9
--- NOTE | 2024-01-09 11:28 | P.PN ---
Subjective HISTORY OF PRESENT ILLNESS: This is a 73-year-old male with a past medical history significant for DVT in 2007, hypertension, hyperlipidemia, and diabetes. 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 We have been asked to see the patient in consultation for tachycardia. Patient examined at the bedside. Patient states he recently got 10 teeth extracted at his dentist. The patient was having some bleeding post procedure which he was concerned about so he came to the emergency room. The patient was found to be tachycardic with a heart rate in the 140s. He was given adenosine per primary medicine. EKGs reviewed revealing atrial flutter. Patient remains in atrial flutter this morning with a heart rate in the 110s. He is currently on IV Cardizem at 5 mg an hour. He has been resumed on his Coumadin. INR today is 2.1. Patient denied any history of atrial fibrillation or atrial flutter. He denied having any palpitations. Denies any dizziness or lightheadedness. DIAGNOSTICS: - EKG reveals atrial flutter with RVR - Laboratory data: WBC 8.5. Hemoglobin 14.6. Platelet count 258. INR 2.1. Sodium 140. Potassium 4.1. BUN 15. Creatinine 0.67. Troponin negative x 3. - Current home cardiac medications include lisinopril 10 mg daily, Coumadin 7.5 mg on Monday and Monday and 5 mg on Monday and and pravastatin 20 mg every 2 days. - Most recent echocardiogram obtained in 2017 revealed ejection fraction 55 to 60%, aneurysmal intra-atrial septum 01/07/2024 Patient examined this morning at the bedside. Patient currently denies any chest pain or pressure. He denies any shortness of breath. He remains in atrial flutter with a heart rate around 115. 2D echo remains pending. INR toda y 2.0. Addendum entered and electronically signed by Norma Beard NP-C 01/07/24 1 1:06: Per Dr. Lawrence, echo reviews LV thrombus Cardioversion for tomorrow canceled due to LV thrombus Continue anticoagulation with Coumadin. Give 10 mg tonight. Give Lovenox 80 mg x [address] Lawrence due to patient forming LV thrombus despite Coumadin therapy Recommend eventual transition to Eliquis if covered by patient's insurance 01/09/2024 Patient examined this morning at the bedside. Patient currently denies any chest pain or pressure. He denies shortness of breath. Telemetry reveals atrial flutter with heart rate around 100. Echocardiogram performed revealing ejection fraction 30% with small LV thrombus PHYSICAL EXAM: VITAL SIGNS: Reviewed. GENERAL: Well-developed in no acute distress. HEENT: Head is normocephalic. Pupils are equal, round. Sclerae anicteric. Mucous membranes of the mouth are moist. Neck supple. No JVD or thyromegaly LUNGS: Respirations even and unlabored. Lungs essentially clear to auscultation bilaterally. HEART: Regular rate and rhythm. S1 and S2 heard. ABDOMEN: Soft. Nondistended. Nontender. EXTREMITIES: Normal range of motion. No clubbing or cyanosis. Peripheral pulses intact. No lower extremity edema NEUROLOGIC: Awake and alert. Oriented x 3. ASSESSMENT: Bleeding gums status post extraction of 10 teeth, resolved New onset typical atrial flutter with RVR LV thrombus despite therapeutic INR on Coumadin Cardiomyopathy, EF 30%, ischemic versus nonischemic History of DVT in 2007, on Coumadin outpatient Hypertension Hyperlipidemia Diabetes PLAN: Continue current cardiac medications Patient may be discharged home today from a cardiac standpoint He is to follow-up in the office with Dr. Lawrence Patient will require eventual atrial flutter ablation Nurse practitioner note has been reviewed by physician. Signing provider agrees with the documented findings, assessment, and plan of care documented by BIN PILER as a scribe. Objective - Vital Signs Vital signs: Vital Signs Temp 97.9 F 01/09/24 08:20 Pulse 101 H 01/09/24 08:20 Resp 17 01/09/24 08:20 BP 116/64 01/09/24 08:20 Pulse Ox 95 01/09/24 08:20 FiO2 Intake & Output 01/08/24 01/09/24 01/09/24 18:59 06:59 18:59 Intake Total 1212 20 668 Output Total 750 900 550 Balance 462 -880 118 Weight 107.9 kg Intake: IV 20 20 10 Invasive Line 1 20 20 10 Oral 1192 658 Output: Urine 750 900 550 Other: Voiding Method Urinal Urinal # Voids 1 - Labs CBC & Chem 7: 01/05/24 20:33 07/23/24 05:33 Labs: Abnormal Lab Results - Last 24 Hours (Table) 01/08/24 01/08/24 01/08/24 Range/Units 11:27 16:38 20:27 PT (10.0-12.5) sec INR (<1.2) Chloride (98-107) mmol/L Glucose (74-99) mg/dL POC Glucose (mg/dL) 147 H 125 H 131 H (70-110) mg/dL 01/09/24 01/09/24 01/09/24 Range/Units 05:33 05:33 05:47 PT 28.0 H (10.0-12.5) sec INR 2.8 H (<1.2) Chloride 109 H (98-107) mmol/L Glucose 116 H (74-99) mg/dL POC Glucose (mg/dL) 115 H (70-110) mg/dL
[2024-01-09 11:33] LABS: Glucose,Whole Blood 154 mg/dL (70-110)
[2024-01-09 13:51] VITALS: BP 106/68; PULSE 86
--- NOTE | 2024-01-09 13:56 | P.DS ---
Providers Date of admission: 01/05/24 21:04 Discharge Diagnosis: Atrial flutter with RVR Heart failure with reduced ejection fraction, EF 30%, not in exacerbation Type II diabetes BPH Suspected small apical LV thrombus History of DVT Hypertension Dyslipidemia Gum bleeding status post teeth extraction Systolic cardiomyopathy, unknown if ischemic or nonischemic, likely secondary to atrial flutter with RVR Hospital Course: Patient is a 73-year-old male with PMH of DVT of left leg on warfarin since 2008, hmv-[id number] diabetes mellitus, BPH, hypertension, hyperlipidemia and PATO on CPAP presented to the ER with complaints of bleeding from his gums. Patient went to see his dentist in the morning for dentures and underwent dental procedure involving extraction of multiple teeth. Patient states that he was not taken off warfarin for the procedure. Patient came back home and continued to have episodes of bleeding from his gums which prompted him to come to the ER for further evaluation. Patient reports that by the time he reached the ER his bleeding had almost stopped. Patient was given tranexamic acid 1000 mg once for his gums which successfully stopped the bleeding. EKG in the ER showed patient to be in a narrow complex tachycardia with heart rate of 132 bpm. Patient denies chest pain, shortness of breath, palpitations, diaphoresis, nausea, vomiting, dizziness, numbness or tingling or weakness in upper or lower extremities. Patient denies history of CAD or CVA. Patient denies use of illicit drug use. Patient otherwise states that he is feeling fine at the time of interview and had no active complaints. EKG in the ER shows narrow complex tachycardia with a heart rate of 132 bpm. SC interval 190 ms. QRS duration of 105 ms. QTc 369, no prolongation noted and no pre-excitation delta-wave noted. Repeat EKG showed atrial flutter with RVR. Laboratory evaluation show WBC 8.5, hemoglobin 14.6, hematocrit 43.7, sodium 140, potassium 4.1, chloride 109, bicarb 24, BUN 15, creatinine 0.67, EGFR>90, glucose 78, troponin <0.012. Vitals: Tmax 99.7 F, heart rate 133, respiration 22, blood pressure 149/97, oxygen saturation 95% on room air. Patient was admitted for new onset atrial flutter with RVR. Cardiology consulted. While admitted patient switched from Coumadin to Eliquis. Echocardiogram shows LVEF 30%, grade 2 diastolic dysfunction, possible small apical LV thrombus. Patient was placed on GDMT for heart failure with reduced ejection fraction. Was given rate control medication for his atrial for flutter with RVR. Patient is rate controlled. Will follow- up with cardiology outpatient for possible cardioversion versus outpatient abla tion. His Coumadin is being discontinued and is going home with Eliquis. Patient will follow also follow-up with PCP. He is being discharged home. 01/09/2024: Patient seen and examined at bedside. No acute acute events overnight. He denies any chest pains or heart palpitations. Vital signs reviewed and stable. Physical Exam: General: Nontoxic, no distress, appears at stated age, morbidly obese Derm: Warm, dry Head: Atraumatic, normocephalic, symmetric Eyes: EOMI, no lid lag, anicteric sclera Mouth: No lip lesion, mucus membranes moist Cardiovascular: S1S2 reg, tachycardic, no murmur Lungs: CTA bilateral, no rhonchi, no rales, no accessory muscle use Abdominal: Soft, nontender to palpation, no guarding, no appreciable o rganomegaly Ext: No gross muscle atrophy, no edema, no contractures Neuro: CN II-XI grossly intact, no focal neuro deficits Psych: Alert, oriented, appropriate affect A total of 30 minutes of time were spent preparing this complex discharge summary. Patient was discharge on January 09 2024 at 1:07 PM. Expected date of discharge: 01/09/24 Attending physician: Sarah Lopez MD Consults: 01/05/24 21:00 Consult Physician Urgent Consulting Provider: [facility] Consult Reason/Comments: Junctional tachycardia Do you want consulting provider notified?: Yes Primary care physician: [facility] Course: I have seen and evaluated the patient today. Discussed with the resident and agree with the residents subjective and objective as documented in the resident's note. The assessment and plan was discussed and outlined as below. No complaints. Looking forward to going home. Prescriptions sent for ASA, Eliquis, Farxiga, Aldactone, Lisinopril, Metoprolol and Pravastatin. Cardiology cleared for discharge with plans to follow up with Dr. Lawrence within 1 week of discharge. Discharge Diagnosis: New onset atrial flutter with RVR: Metoprolol 75 mg PO BID. Eliquis 5 mg PO BID. Cardiology plans for no cardioversion, continue ASA and Eliquis, reassess in 4-6 weeks. Apical LV thrombus: Failed Coumadin therapy. Eliquis as above. HFrEF + HFpEF: EF 30% G2DD. Lisinopril 5 mg PO QD. Metoprolol as above. Farxiga 10 mg PO QD. Aldactone 12.5 mg PO QD. History of DVT: Eliquis as above. Hypertension: Lisinopril, Aldactone and Metoprolol as above. Dyslipidemia: Pravastatin 40 mg PO QD. Diabetes mellitus: A1c 7.3. BPH: Flomax 0.4 mg PO HS. Patient Condition at Discharge: Stable Plan - Discharge Summary New Discharge Prescriptions: New Aspirin 81 mg PO DAILY #30 tab Apixaban [Eliquis] 5 mg PO BID #60 tab Spironolactone [Aldactone] 12.5 mg PO DAILY #30 tab Dapagliflozin Propanediol [Farxiga] 10 mg PO DAILY #30 tab Metoprolol Tartrate [Lopressor] 75 mg PO BID #60 tablet Pravastatin Sodium [Pravachol] 40 mg PO DAILY #30 tab lisinopriL [Zestril] 5 mg PO DAILY #30 tab Continue metFORMIN HCL [Glucophage] 1,000 mg PO BID Cyanocobalamin [Vitamin B-12 Injection] 1,000 mcg IM Q60D Tamsulosin HCl [Flomax] 0.4 mg PO HS Cholecalciferol [Vitamin D3 (25 Mcg = 1000 Iu)] 50 mcg PO DAILY glipiZIDE [Glucotrol] 10 mg PO AC-BID Triamcinolone 0.1% Ointment [Kenalog 0.1% Ointment] 1 applic TOPICAL BID PRN PRN Reason: Itching Carboxymethylcellulose Sodium [Thera Tears] 1 drop BOTH EYES BID Ammonium Lactate Lotion [Lac-Hydrin 12% Lotion] 1 applic TOPICAL DAILY Discontinued Pravastatin Sodium [Pravachol] 20 mg PO Q2D@2100 Warfarin [Coumadin] 5 mg PO MOTH@2129 Warfarin [Coumadin] 7.5 mg PO SUTUWEFRSA@2129 lisinopriL [Prinivil] 10 mg PO DAILY Discharge Medication List Cyanocobalamin [Vitamin B-12 Injection] 1,000 mcg IM Q60D 11/22/17 [History] metFORMIN HCL [Glucophage] 1,000 mg PO BID 11/22/17 [History] Cholecalciferol [Vitamin D3 (25 Mcg = 1000 Iu)] 50 mcg PO DAILY 08/24/21 [History] Tamsulosin HCl [Flomax] 0.4 mg PO HS 08/24/21 [History] glipiZIDE [Glucotrol] 10 mg PO AC-BID 08/24/21 [History] Ammonium Lactate Lotion [Lac-Hydrin 12% Lotion] 1 applic TOPICAL DAILY 01/05/24 [History] Carboxymethylcellulose Sodium [Thera Tears] 1 drop BOTH EYES BID 01/05/24 [History] Triamcinolone 0.1% Ointment [Kenalog 0.1% Ointment] 1 applic TOPICAL BID PRN 01/05/24 [History] Apixaban [Eliquis] 5 mg PO BID #60 tab 01/09/24 [Rx] Aspirin 81 mg PO DAILY #30 tab 01/09/24 [Rx] Dapagliflozin Propanediol [Farxiga] 10 mg PO DAILY #30 tab 01/09/24 [Rx] Metoprolol Tartrate [Lopressor] 75 mg PO BID #60 tablet 01/09/24 [Rx] Pravastatin Sodium [Pravachol] 40 mg PO DAILY #30 tab 01/09/24 [Rx] Spironolactone [Aldactone] 12.5 mg PO DAILY #30 tab 01/09/24 [Rx] lisinopriL [Zestril] 5 mg PO DAILY #30 tab 01/09/24 [Rx] Follow up Appointment(s)/Referral(s): Eliud Lawrence MD [STAFF PHYSICIAN] - 1 Week (will call you with follow up appointment. ) [facility],Clinic [Primary Care Provider] - 1-2 days Discharge Disposition: HOME SELF-CARE
--- NOTE | 2024-01-10 15:12 | CDI ---
Documentation Clarification Form Date: 01/10/2024 03:04:27 PM From: Jacqueline Kilgore Phone: Admit Date: 01/05/2024 09:04:00 PM Patient Name: Ajay North Visit Number: [id number] Discharge Date: 01/09/2024 03:42:00 PM ATTENTION: The Clinical Documentation Specialists (CDI) and [facility] Coding Staff appreciate your assistance in clarifying documentation. Please respond to the clarification below the line at the bottom and electronically sign. The CDI & [facility] Coding staff will review the response and follow-up if needed. Please note: Queries are made part of the Legal Health Record. If you have any questions, please contact the author of this message via ITS. Doctor/Provider: Sarah Lopez Your patient has an abnormal lab value: A1C 7.3. Please clarify if there is an additional diagnosis and/or clinical significance related to this value. History/Risk Factors: 73yo M, Bleeding gumsstatus postextractionof 10 teeth, CCHF, PAF, BPH, typical atrial flutter, HTN, HLD, NIDDMII, Hx DVT, former smoker Clinical indicators: Glucose: 01/04 78 01/05 78 01/06 145-203 01/07 147-232 01/08 115-147 Treatment: Continue insulin sliding scale with blood glucosemonitoring Home Meds: metformin HCL [Glucophage] 1,000 mg PO BID-W/MEALS Is there an additional diagnosis and/or clinical significance related to the above lab result/information? [ ] Type 2 diabetes mellitus with hyperglycemia [ ] No additional diagnosis/Not clinically significant [ ] Other, please specify [ ] Unable to determine (Template Last Revised: July 2020) MTDD
--- NOTE | 2024-01-10 15:29 | CDI ---
Documentation Clarification Form Date: 01/10/2024 03:14:26 PM From: Jacqueline Kilgore Phone: Admit Date: 01/05/2024 09:04:00 PM Patient Name: Ajay North Visit Number: [id number] Discharge Date: 01/09/2024 03:42:00 PM ATTENTION: The Clinical Documentation Specialists (CDI) and [facility] Coding Staff appreciate your assistance in clarifying documentation. Please respond to the clarification below the line at the bottom and electronically sign. The CDI & [facility] Coding staff will review the response and follow-up if needed. Please note: Queries are made part of the Legal Health Record. If you have any questions, please contact the author of this message via ITS. Doctor/Provider: Sarah Lopez There is documentation of bleeding of his gums after multiple teeth extraction at his dentist office and the Pt is on long-term Coumadin. Based on this information and the findings below, is there an additional diagnosis that is clinically appropriate for this patient? History/Risk Factors: 73yo M, gum hemorrhage sp tooth x10 extraction, HTN, HLD, LVthrombus, BP lownormal, PAF w atrial flutter, NIDDMII, Hx DVT, former smoker Clinical Indicators: PT: 12/2020.7 20.7 01/06 20.3 01/07 21.9 01/08 28.0 INR: 01/05 2.1 01/06 2.0-2.1 01/07 2.2 His INR iswere reviewedfrom the year outpatient clinic: January 02: INR 2.0; December 24: INR 2.1 December 19: INR 2.0; October 19: INR 2.5; July: INR 3.0 Patient went to see his dentist in the morning for dentures and underwent dental procedure involvingextractionof multiple teeth. Patient states that he was not taken off warfarin for the procedure. Patient came back home and continued to have episodes ofbleedingfrom his gums which prompted him to come to the ER for furtherevaluation. Treatment: Patient reports that by the time he reached the ER his bleedinghad almost stopped. Patient was given tranexamic acid 1000 mg once for his gums which successfully stopped thebleeding. Hold off onelectrical cardioversionoratrial flutter. Switch to Eliquis 5 mg twice daily along with a baby aspirin, since patient has failed warfarin despite therapeutic INR. Guideline directedheart failuretherapyincluding beta- blockers, Lisinopril, Farxiga. Increase Pravachol to 40 mg p.o. daily. Continue spironolactone 12.5 mg p.o. daily Is there an additional diagnosis that is clinically appropriate for this patient? [ ] Hemorrhage due to teeth extraction, expected outcome [ ] Coagulopathy due to long-term Coumadin causing Hemorrhage [ ] Abnormal coagulation profile [ ] Other, please specify [ ] Unable to determine (Template Last Revised: March 2022) MTDD
== END 2024-01-09 15:42 | disposition home or self-care (01) | DRG 309 ==
LOC: EC 18:54 → 3SCARD 21:04
PROVIDERS: ADMIT Internal Medicine; ATTEND Internal Medicine
DX: I48.3 Typical atrial flutter (principal); D68.32 Hemorrhagic disorder due to extrinsic circulating anticoagulants; K91.840 Postprocedural hemorrhage of a digestive system organ or structure following a digestive system procedure; I50.42 Chronic combined systolic (congestive) and diastolic (congestive) heart failure; I42.8 Other cardiomyopathies; I11.0 Hypertensive heart disease with heart failure; E66.01 Morbid (severe) obesity due to excess calories; I48.0 Paroxysmal atrial fibrillation; I51.3 Intracardiac thrombosis, not elsewhere classified; G20.A1 Parkinson's disease without dyskinesia, without mention of fluctuations; Z68.37 Body mass index [BMI] 37.0-37.9, adult; N40.0 Benign prostatic hyperplasia without lower urinary tract symptoms; K13.79 Other lesions of oral mucosa; T45.515A Adverse effect of anticoagulants, initial encounter; E78.5 Hyperlipidemia, unspecified; G47.33 Obstructive sleep apnea (adult) (pediatric); H91.90 Unspecified hearing loss, unspecified ear; K06.8 Other specified disorders of gingiva and edentulous alveolar ridge; R03.1 Nonspecific low blood-pressure reading; I47.19 Other supraventricular tachycardia; Y84.8 Other medical procedures as the cause of abnormal reaction of the patient, or of later complication, without mention of misadventure at the time of the procedure; Z87.891 Personal history of nicotine dependence; Z79.01 Long term (current) use of anticoagulants; Z79.84 Long term (current) use of oral hypoglycemic drugs; Z86.718 Personal history of other venous thrombosis and embolism; Z79.899 Other long term (current) drug therapy; Z85.828 Personal history of other malignant neoplasm of skin
CPT/HCPCS: 36415; 80048; 80053; 80061; 83036; 83735; 84443; 84484; 85025; 85610; 85730; 93005; 93306; 94760; 96365; 96366; 96375; 99284

== ENCOUNTER → 2024-04-09 | Outpatient (CLI) | payer OTHER, MEDICARE ==
[2024-04-09 15:50] LABS: HCT 44.7 % (39.6-50.0); HGB 15.3 g/dL (13.0-17.0); MCH 32.2 pg (27.0-32.0); MCHC 34.2 g/dL (32.0-37.0); MCV 94.1 FL (80.0-97.0); Mean Platelet Volume 9.6 FL (9.5-12.2); NRBC Per 100 WBC 0 X 10*3/uL (0.00-0.01); Platelet Count 267 X 10*3/uL (140-440); RBC 4.75 X 10*6/uL (4.40-5.60); WBC 6.03 X 10*3/uL (4.50-10.00)
[2024-04-09 17:25] LABS: ALT 13 U/L (10-49); AST 13 U/L (14-35); Albumin 4.2 g/dL (3.8-4.9); Albumin/Globulin Ratio 1.75 Ratio (1.60-3.17); Alkaline Phosphatase 76 U/L (41-126); Blood Urea Nitrogen 19.3 mg/dL (9.0-27.0); Calcium 9.7 mg/dL (8.7-10.3); Carbon Dioxide 21.1 mmol/L (21.6-31.8); Chloride 103 mmol/L (96-109); Globulin 2.4 g/dL (1.6-3.3); Glucose 232 mg/dL (70-110); Sodium 139 mmol/L (135-145); Total Bilirubin 1.1 mg/dL (0.3-1.2); Total Protein 6.6 g/dL (6.2-8.2)
== END | disposition home or self-care (01) ==
LOC: LABPAT 10:57
PROVIDERS: ATTEND Internal Medicine Clinical Cardiac Electrophysiology
CPT/HCPCS: 36415; 80053; 85027; 86850; 86900; 86901

== ENCOUNTER 2024-04-18 12:55 | Day surgery (SDC) | payer MEDICARE, OTHER ==
[2024-04-17 08:30] VITALS: BMI 37.5
[2024-04-18] MEDS: SODIUM CHLORIDE 0.9% 1,000 ML IV SCH (14:45)
[2024-04-18] MEDS: IV FLUID CONTINUATION 1,000 ML IV ONE (14:50)
[2024-04-18 14:52] LABS: Glucose,Whole Blood 140 mg/dL (70-110)
[2024-04-18 15:02] LABS: Basophils % (A) 0 %; Eosinophils # (A) 0.1 k/uL (0-0.7); Eosinophils % (A) 1 %; HCT 46.3 % (39.0-53.0); HGB 15.4 gm/dL (13.0-17.5); Lymphocytes # (A) 1.7 k/uL (1.0-4.8); Lymphocytes % (A) 23 %; MCH 31.8 pg (25.0-35.0); MCHC 33.4 g/dL (31.0-37.0); MCV 95.2 fL (80.0-100.0); Mean Platelet Volume 6.8; Monocytes # (A) 0.5 k/uL (0-1.0); Monocytes % (A) 7 %; Neutrophils # (A) 4.8 k/uL (1.3-7.7); Neutrophils % (A) 66 %; Platelet Count 270 k/uL (150-450); RBC 4.86 m/uL (4.30-5.90); RDW 12.7 % (11.5-15.5); WBC 7.3 k/uL (3.8-10.6)
[2024-04-18] MEDS: IV FLUID CONTINUATION 950 ML IV ONE (15:11)
[2024-04-18] MEDS ORDERED: WATER FOR INJECTION, STERILE 10 ML VIAL IV ONE (15:11)
[2024-04-18] MEDS ORDERED: MIDAZOLAM 2 MG/2 ML VIAL ONE (15:11)
[2024-04-18] MEDS ORDERED: fentaNYL (PF) 50 MCG/ML 2 ML AMP ONE (15:11)
[2024-04-18] MEDS ORDERED: LIDOCAINE 1% INJ 10MG/ML (20 ML MDV) ONE (15:11)
[2024-04-18] MEDS ORDERED: SUCCINYLCHOLINE CHLORIDE 200 MG/10 ML VIAL IV ONE (15:11)
[2024-04-18] MEDS ORDERED: ROCURONIUM 10 MG/ML (5 ML VIAL) IV ONE (15:11)
[2024-04-18] MEDS ORDERED: PHENYLEPHRINE 10 MG/ML VIAL ONE (15:11)
[2024-04-18] MEDS ORDERED: HEPARIN SODIUM,PORCINE 10,000 UNIT/ML 1 ML VIAL ONE (15:11)
[2024-04-18] MEDS ORDERED: PROPOFOL 10 MG/ML 20 ML VIAL IV ONE (15:11)
[2024-04-18] MEDS ORDERED: GLYCOPYRROLATE 0.2 MG/ML 2 ML VIAL ONE (15:11)
[2024-04-18] MEDS ORDERED: VASOPRESSIN 20 UNIT/ML 1 ML VIAL ONE (15:11)
[2024-04-18] MEDS ORDERED: NEOSTIGMINE 1 MG/ML 10 ML VIAL ONE (15:11)
[2024-04-18 15:15] LABS: ALT 15 U/L (4-49); AST 19 U/L (17-59); African American GFR (CKD) >90 (>60 ml/min/1.73 sqM); Albumin 4.2 g/dL (3.5-5.0); Alkaline Phosphatase 69 U/L (38-126); Anion Gap 8 mmol/L; Blood Urea Nitrogen 22 mg/dL (9-20); Calcium 9.5 mg/dL (8.4-10.2); Carbon Dioxide 24 mmol/L (22-30); Chloride 106 mmol/L (98-107); Glucose 146 mg/dL (74-99); Non-African American GFR(CKD) 88 (>60 ml/min/1.73 sqM); Potassium 4.5 mmol/L (3.5-5.1); Sodium 138 mmol/L (137-145); Total Bilirubin 1.8 mg/dL (0.2-1.3); Total Protein 6.9 g/dL (6.3-8.2)
--- NOTE | 2024-04-18 15:34 | P.EPPROC ---
- EP Procedure Note Electrophysiology Procedure Note: This is Dr. 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 He has class III heart failure symptoms with cardiomyopathy History of hypertension and DVT He had an LV thrombus on therapeutic doses of warfarin but now is on Eliquis plus aspirin He has a vague discomfort in the chest and shortness of breath with very average activities but no loss of consciousness No orthopnea or PND No cough phlegm expectoration ROS: No fever chills or rigors, no cough, phlegm or expectoration, no nausea, vomiting or diarrhea, no hematuria, dysuria, no musculoskeletal complaints, no strokes or seizures, no skin lesions. EXAMINATION: Pulse rate 58 beats a minute, afebrile, normal respirations Blood pressure 126/70 mmHg Irregular rhythm No JVD Clear lungs no rhonchi no crackles Central obesity REVIEW OF LABS, ECG & MEDICAL DATA White count 7.3 thousand, hemoglobin 15.4, platelet count 270,000 Sodium 138, potassium 4.5 BUN 22, creatinine 0.8 Normal liver function
[2024-04-18] MEDS: LIDOCAINE 1% INJ 10MG/ML (20 ML MDV) SQ ONE (15:39)
[2024-04-18] MEDS: HEPARIN SODIUM (1,000 UNIT/ML) 1,000 UNIT in SODIUM CHLORIDE 0.9% 1,000 ML IRRIGATION ONE (16:09)
[2024-04-18] MEDS ORDERED: ACETAMINOPHEN TAB 325 MG TAB PO PRN (17:12)
[2024-04-18 17:38] LABS: Glucose,Whole Blood 132 mg/dL (70-110)
--- NOTE | 2024-04-18 17:38 | P.EPPROC ---
- EP Procedure Note Electrophysiology Procedure Note: Diagnosis: Typical atrial flutter with class II-III CHF, systolic with cardiomyopathy/reduced LV systolic function Final diagnosis: Isthmus dependent typical atrial flutter Status post successful ablation and confirmation of bidirectional block across the RF line Mildly prolonged sinus node recovery times Mildly abnormal AV node function Details Patient is brought to the EP lab in a fasting state. Written informed consent was obtained prior to the procedure. General anesthesia provided. Venous sheaths placed in the right left femoral veins Diagnostic catheter was positioned in the high right atrium His bundle area right ventricle and coronary sinus Patient was in a tachycardia 241 ms. Intracardiac echo performed Intracardiac echo revealed absence of any left atrial appendage thrombus Entrainment mapping was first performed and isthmus dependency was confirmed Thereafter since the patient's blood pressure was low, electrical cardioversion was performed and the patient converted to sinus rhythm Following that ablation of atrial flutter was performed A complete line of block was made using RF, from the tricuspid valve to the IVC Isthmus conduction time 160 ms Split potentials of 129 ms across the RF line Bidirectional block proven with differential pacing Sinus cycle length 863 ms, IL interval 187 ms, QRS 118 ms and QT interval 414 ms AH 95 ms and HV interval 35 ms Sinus node recovery times were 1387, 1357 and 1393 ms. Mildly prolonged corrected sinus node recovery times AV node Wenckebach block 430 ms All sheaths were removed. Vascade closure provided hemostasis assured Patient Toller the procedure well without any acute complications Intracardiac echo revealed improved LV systolic function and improved RV systolic function The cavotricuspid isthmus was pouch shaped and short
[2024-04-18] MEDS: ACETAMINOPHEN IV (For NPO) 1,000 MG in EMPTY BAG 1 BAG IVPB ONE (20:08)
[2024-04-18] MEDS: TAMSULOSIN 0.4 MG CAP.ER.24H PO SCH (20:11)
[2024-04-18] MEDS: ASPIRIN 81 MG PO SCH (20:11)
[2024-04-18] MEDS: metFORMIN 500 MG TAB PO SCH (20:11)
[2024-04-18] MEDS: METOPROLOL TARTRATE 25 MG TAB PO SCH (20:11)
[2024-04-18] MEDS: APIXABAN 5 MG TAB PO SCH (20:11)
[2024-04-18] MEDS: glipiZIDE 10 MG TAB PO SCH (20:25)
--- NOTE | 2024-04-19 07:43 | P.DS ---
Providers Attending physician: Eliud Lawrence Primary care physician: Stated None Hospital Course: Patient is doing well. He is resting comfortably in bed. He denies any chest discomfort dizziness lightheadedness shortness of breath orthopnea PND His groins of healed well no pain On examination blood pressure 112/69 mmHg pulse rate 80s and 90s afebrile Heart sounds S1-S2 normal no murmurs to gallops or rub Lungs are clear no rhonchi no crackles Abdomen soft Groins of healed well no hematoma no swelling no tenderness No lower extremity edema Impression Nonischemic cardiomyopathy Congestive heart failure class II-III Typical atrial flutter Yesterday he underwent successful ablation for typical atrial flutter PVCs noted on the monitor Twelve-lead EKG shows sinus rhythm PVCs noted on the monitor Twelve-lead EKG shows sinus rhythm with T wave inversions V2-V6 with frequent PVCs Plan Continue anticoagulation uninterrupted Continue cardiomyopathy medications Follow-up with Dr. Lawrence in 1 week Follow-up Holter monitor and maximization of beta-blockers and heart failure medications Patient Condition at Discharge: Stable Plan - Discharge Summary Discharge Rx Participant: No New Discharge Prescriptions: Continue metFORMIN HCL [Glucophage] 1,000 mg PO BID Cyanocobalamin [Vitamin B-12 Injection] 1,000 mcg IM Q60D Tamsulosin HCl [Flomax] 0.4 mg PO HS Cholecalciferol [Vitamin D3 (25 Mcg = 1000 Iu)] 50 mcg PO DAILY glipiZIDE [Glucotrol] 10 mg PO AC-BID Triamcinolone 0.1% Ointment [Kenalog 0.1% Ointment] 1 applic TOPICAL BID PRN PRN Reason: Itching Carboxymethylcellulose Sodium [Thera Tears] 1 drop BOTH EYES BID Apixaban [Eliquis] 5 mg PO BID #60 tab Aspirin 81 mg PO HS Ammonium Lactate Lotion [Lac-Hydrin 12% Lotion] 1 applic TOPICAL DAILY Spironolactone [Aldactone] 12.5 mg PO DAILY #30 tab Dapagliflozin Propanediol [Farxiga] 10 mg PO DAILY #30 tab Metoprolol Tartrate [Lopressor] 75 mg PO BID #60 tablet Pravastatin Sodium [Pravachol] 40 mg PO DAILY #30 tab lisinopriL [Zestril] 5 mg PO DAILY #30 tab Discharge Medication List Cyanocobalamin [Vitamin B-12 Injection] 1,000 mcg IM Q60D 11/22/17 [History] metFORMIN HCL [Glucophage] 1,000 mg PO BID 11/22/17 [History] Cholecalciferol [Vitamin D3 (25 Mcg = 1000 Iu)] 50 mcg PO DAILY 08/24/21 [History] Tamsulosin HCl [Flomax] 0.4 mg PO HS 08/24/21 [History] glipiZIDE [Glucotrol] 10 mg PO AC-BID 08/24/21 [History] Ammonium Lactate Lotion [Lac-Hydrin 12% Lotion] 1 applic TOPICAL DAILY 01/05/24 [History] Carboxymethylcellulose Sodium [Thera Tears] 1 drop BOTH EYES BID 01/05/24 [History] Triamcinolone 0.1% Ointment [Kenalog 0.1% Ointment] 1 applic TOPICAL BID PRN 01/05/24 [History] Apixaban [Eliquis] 5 mg PO BID #60 tab 01/09/24 [Rx] Dapagliflozin Propanediol [Farxiga] 10 mg PO DAILY #30 tab 01/09/24 [Rx] Metoprolol Tartrate [Lopressor] 75 mg PO BID #60 tablet 01/09/24 [Rx] Pravastatin Sodium [Pravachol] 40 mg PO DAILY #30 tab 01/09/24 [Rx] Spironolactone [Aldactone] 12.5 mg PO DAILY #30 tab 01/09/24 [Rx] lisinopriL [Zestril] 5 mg PO DAILY #30 tab 01/09/24 [Rx] Aspirin 81 mg PO HS 04/18/24 [History] Follow up Appointment(s)/Referral(s): Eliud Lawrence MD [STAFF PHYSICIAN] - 1 Week Activity/Diet/Wound Care/Special Instructions: Post EP study - Ablation instructions 1. Keep access sites dry for 2 days. 2. No heavy lifting or straining for 2 days. 3. Avoid bending the hips repeatedly for 2 days. 4. You may go up and down stairs slowly 5. If you have had an ablation for atrial fibrillation or atrial flutter and are on a blood thinner, do not stop the blood thinner even temporarily for 3 months post ablation Call if the following is noted 1. Bleeding, increasing swelling or pain at the access sites. 2. Increasing chest discomfort, especially upon taking a deep breath. 3. Increasing shortness of breath, at rest or with exertion. 4. Undue cough / phlegm 5. Difficulty or pain while swallowing. 6. Pain or change in color in the extremities. 7. Fever, chills, rigors. 8. Increasing headache or neurologic symptoms. 9. Dizziness, fainting, palpitations Do not stop Eliquis or aspirin Discharge Disposition: HOME SELF-CARE
[2024-04-19 09:57] VITALS: BP 128/80; PULSE 52; RESP 18; TEMP 98.1
[2024-04-19] MEDS: DAPAGLIFLOZIN PROPANEDIOL 10 MG TABLET PO SCH (10:48)
[2024-04-19] MEDS: lisinopriL 5 MG TAB PO SCH (10:48)
[2024-04-19] MEDS: PRAVASTATIN SODIUM 40 MG TAB PO SCH (10:49)
[2024-04-19] MEDS: SPIRONOLACTONE 25 MG TAB PO SCH (10:49)
== END 2024-04-19 10:53 | disposition home or self-care (01) ==
LOC: CATHEP 12:55 → 6NMEDSUR 16:58 → CATHEP 04-19 10:53
PROVIDERS: ATTEND Internal Medicine Clinical Cardiac Electrophysiology
DX: I48.3 Typical atrial flutter (principal); I11.0 Hypertensive heart disease with heart failure; I50.22 Chronic systolic (congestive) heart failure; I42.8 Other cardiomyopathies; I24.0 Acute coronary thrombosis not resulting in myocardial infarction; E11.51 Type 2 diabetes mellitus with diabetic peripheral angiopathy without gangrene; E78.5 Hyperlipidemia, unspecified; I34.0 Nonrheumatic mitral (valve) insufficiency; E66.9 Obesity, unspecified; Z79.01 Long term (current) use of anticoagulants; Z79.82 Long term (current) use of aspirin; Z79.84 Long term (current) use of oral hypoglycemic drugs; Z79.899 Other long term (current) drug therapy; Z86.718 Personal history of other venous thrombosis and embolism; Z88.8 Allergy status to other drugs, medicaments and biological substances
CPT/HCPCS: 92960; 93662; 93653; 86900; 86901; 80053; 85025; 86850; C1759; C1894; C1769; C1760; C1766; C1730; C1732; J2003; J1644

== ENCOUNTER 2024-04-27 14:37 | Emergency (ER) | payer OTHER ==
--- NOTE | 2024-04-27 15:02 | ED ---
Male Urogenital HPI - General Source: patient, RN notes reviewed Mode of arrival: ambulatory Limitations: no limitations <Jessica Bradley - Last Filed: 04/27/24 15:01> <Rigo Rosales - Last Filed: 04/27/24 17:49> - General Stated complaint: frequent urination Time Seen by Provider: 04/27/24 15:01 - History of Present Illness Initial comments: Quick note: 74-year-old male presented to the ER with a chief complaint of urinary frequency. Patient states since yesterday he has been unable to make it to the toilet before he urinated on himself. He does report a history of enlarged prostate and takes tamsulosin. He denies any dysuria or abdominal pain no fevers. He does state he had a cardiac ablation on with . (Jessica Bradley) Dictation was produced using [employer] dictation software. please excuse any grammatical, word or spelling errors. Chief Complaint: 74-year-old male presents to the emergency department for difficulty urinating History of Present Illness: Patient 74-year-old male states that over the last 12 hours he has been having difficulty urinating including dribbling. He states he has a known history of enlarged prostate. Denies any fever chills or night sweats. No abdominal pain. No pain when he urinates. Patient denies any testicular pain. Denies any penile pain. No pain with defecation The ROS documented in this emergency department record has been reviewed and confirmed by me. Those systems with pertinent positive or negative responses have been documented in the HPI. All other systems are other negative and/or noncontributory. (Rigo Rosales) - Related Data Home Medications Medication Instructions Recorded Confirmed Cyanocobalamin [Vitamin B-12 1,000 mcg IM Q60D 11/22/17 04/18/24 Injection] metFORMIN HCL [Glucophage] 1,000 mg PO BID 11/22/17 04/18/24 Cholecalciferol [Vitamin D3 (25 50 mcg PO DAILY 08/24/21 04/18/24 Mcg = 1000 Iu)] Tamsulosin HCl [Flomax] 0.4 mg PO HS 08/24/21 04/17/24 glipiZIDE [Glucotrol] 10 mg PO AC-BID 08/24/21 04/18/24 Ammonium Lactate Lotion 1 applic TOPICAL DAILY 01/05/24 04/17/24 [Lac-Hydrin 12% Lotion] Carboxymethylcellulose Sodium 1 drop BOTH EYES BID 01/05/24 04/18/24 [Thera Tears] Triamcinolone 0.1% Ointment 1 applic TOPICAL BID PRN 01/05/24 04/17/24 [Kenalog 0.1% Ointment] Aspirin 81 mg PO HS 04/18/24 04/18/24 Previous Rx's Medication Instructions Recorded Apixaban [Eliquis] 5 mg PO BID #60 tab 01/09/24 Dapagliflozin Propanediol [Farxiga] 10 mg PO DAILY #30 tab 01/09/24 Metoprolol Tartrate [Lopressor] 75 mg PO BID #60 tablet 01/09/24 Pravastatin Sodium [Pravachol] 40 mg PO DAILY #30 tab 01/09/24 Spironolactone [Aldactone] 12.5 mg PO DAILY #30 tab 01/09/24 lisinopriL [Zestril] 5 mg PO DAILY #30 tab 01/09/24 Cefpodoxime Proxetil [Vantin] 200 mg PO Q12HR 10 Days #20 tab 04/27/24 Allergies Allergy/AdvReac Type Severity Reaction Status Date / Time No Known Allergies Allergy Verified 04/27/24 15:48 Review of Systems ROS Other: All systems not noted in ROS Statement are negative. <Jessica Bradley - Last Filed: 04/27/24 15:01> ROS Other: All systems not noted in ROS Statement are negative. <Rigo Rosales - Last Filed: 04/27/24 17:49> ROS Statement: Those systems with pertinent positive or pertinent negative responses have been documented in the HPI. Past Medical History Past Medical History: Atrial Fibrillation, Cancer, Diabetes Mellitus, Deep Vein Thrombosis (DVT), Hyperlipidemia, Hypertension, Pulmonary Embolus (PE) Additional Past Medical History / Comment(s): Hard of Hearing, basal cell CA on face, erectile dysfunction, vitamin D deficiency, DVT left leg, PEx2, Parkinsons History of Any Multi-Drug Resistant Organisms: None Reported Past Surgical History: Orthopedic Surgery Additional Past Surgical History / Comment(s): left broken leg-pin surgery, BASAL CELL CANCER REMOVED, PENILE IMPLANT, COLONOSCOPY, BILAT CATARACTS REMOVED WITH LENS IMPLANTS, Past Anesthesia/Blood Transfusion Reactions: No Reported Reaction Past Psychological History: No Psychological Hx Reported Smoking Status: Former smoker Past Alcohol Use History: None Reported Additional Past Alcohol Use History / Comment(s): QUIT SMOKING Past Drug Use History: None Reported, Marijuana Additional Drug Use History / Comment(s): RARE USE-LAST USED SEVERAL YEARS AGO - Past Family History Mother Additional Family Medical History / Comment(s): alzheimers Father Additional Family Medical History / Comment(s): Stroke <Jessica Bradley - Last Filed: 04/27/24 15:01> General Exam <Jessica Bradley - Last Filed: 04/27/24 15:01> <Rigo Rosales - Last Filed: 04/27/24 17:49> - General Exam Comments Initial Comments: Visual Physical Exam Vital signs reviewed General: Well-appearing, nontoxic, no acute distress. Head: Normocephalic, atraumatic Eyes: PERRLA, EOMI ENT: Airway patent Chest: Nonlabored breathing Skin: No visual rash, normal skin tone Neuro: Alert and oriented 3 Musculoskeletal: No gross abnormalities (Jessica Bradley) PHYSICAL EXAM: General Impression: Alert and oriented x3, not in acute distress HEENT: Normocephalic atraumatic, extra-ocular movements intact, pupils equal and reactive to light bilaterally, mucous membranes moist. Cardiovascular: Heart regular rate and rhythm Chest: Able to complete full sentences, no retractions, no tachypnea Abdomen: abdomen soft, non-tender, non-distended, no organomegaly Musculoskeletal: Pulses present and equal in all extremities, no peripheral edema Motor: no focal deficits noted Neurological: CN II-XII grossly intact, no focal motor or sensory deficits noted Skin: Intact with no visualized rashes Psych: Normal affect and mood (Rigo Rosales) Course Vital Signs 04/27/24 15:46 Temperature 98.8 F Pulse Rate 89 Respiratory 20 Rate Blood Pressure 119/71 O2 Sat by Pulse 98 Oximetry Medical Decision Making <Jessica Bradley - Last Filed: 04/27/24 15:01> <Rigo Rosales - Last Filed: 04/27/24 17:49> - Medical Decision Making I performed the quick note portion of this chart. Electronically signed by Jessica Bradley PA-C (Jessica Bradley) Was pt. sent in by a medical professional or institution ([facility], [facility], urgent care, hospital, or retirement...) When possible be specific @ -No Did you speak to anyone other than the patient for history (EMS, parent, family, police, friend...)? What history was obtained from this source @ -No Did you review nursing and triage notes (agree or disagree)? Why? @ -I reviewed and agree with nursing and triage notes Were old charts reviewed (outside hosp., previous admission, EMS record, old EKG, old radiological studies, urgent care reports/EKG's, retirement records)? Report findings @ -No old charts were reviewed Differential Diagnosis (chest pain, altered mental status, abdominal pain women, abdominal pain men, vaginal bleeding, musculoskeletal, weakness, fever, dyspnea, syncope, headache, dizziness, GI bleed, back pain, seizure, CVA, palpatations, mental health)? @ -UTI, prostatitis, urethritis EKG interpreted by me (3pts min.). @ -None done X-rays interpreted by me (1pt min.). @ -None done CT interpreted by me (1pt min.). @ -None done U/S interpreted by me (1pt. min.). @ -None done What testing was considered but not performed or refused? (CT, X-rays, U/S, labs)? Why? @ -None What meds were considered but not given or refused? Why? @ -None Was smoking cessation discussed for >3mins.? @ -No Were there social determinants of health that impacted care today? How? (Homelessness, low income, unemployed, alcoholism, drug addiction, trans portation, low edu. Level, literacy, decrease access to med. care, correction, rehab)? @ -No Was there de-escalation of care discussed even if they declined (Discuss DNR or withdrawal of care, Hospice)? DNR status @ -No What co-morbidities impacted this encounter? (DM, HTN, Smoking, COPD, CAD, Cancer, CVA, ARF, Chemo, Hep., AIDS, mental health diagnosis, sleep apnea, morbid obesity)? @ -None Was patient admitted / discharged? Hospital course, mention meds given and route, prescriptions, significant lab abnormalities, going to OR and other pertinent info. @ -74-year-old male presents to the emergency department for urinary hesitancy and dribbling. Vital signs upon arrival are within acceptable limits. Patient denies any penile or testicular pain. Urinalysis positive for nitrite positive UTI. Patient given IM ceftriaxone. He is well-appearing denies any significant pain. No flank pain. Denies any constitutional symptoms. Patient discharged with strict return precautions. Advised follow-up with primary care doctor. Patient given outpatient prescription for antibiotics postvoid residual is 12cc Did you discuss the management of the patient with other professionals (professionals i.e. , PA, B[employer] P[employer]ER, lab, RT, psych nurse, director of social work, case aide, teacher, campus safety officer, disability case manager)? Give summary @ -No Was critical care preformed (if so, how long)? @ -No Undiagnosed new problem with uncertain prognosis? @ -No Drug Therapy requiring intensive monitoring for toxicity (Heparin, Nitro, Insulin, Cardizem)? @ -No Were any procedures done? @ -No Diagnosis/symptom? Acute, or Chronic, or Acute on Chronic? Uncomplicated (without systemic symptoms) or Complicated (systemic symptoms)? @ -UTI Side effects of treatment? @ -No Exacerbation, Progression, or Severe Exacerbation? @ -No Poses a threat to life or bodily function? How? (Chest pain, [place], UT, pneumonia, PE, COPD, DKA, ARF, appy, cholecystitis, CVA, Diverticulitis, Homicidal, Suicidal, threat to staff... and all critical care pts) @ -yes (Rigo Rosales) - Lab Data Lab Results 04/27/24 Range/Units 15:48 Urine Color Yellow Urine Appearance Turbid (Clear) Urine pH 5.5 (5.0-8.0) Ur Specific [place] 1.024 (1.001-1.035) Urine Protein 1+ H (Negative) Urine Glucose (UA) 4+ H (Negative) Urine Ketones 1+ H (Negative) Urine Blood Small H (Negative) Urine Nitrite Positive (Negative) Urine Bilirubin Negative (Negative) Urine Urobilinogen <2.0 (<2.0) mg/dL Ur Leukocyte Esterase Large H (Negative) Urine RBC 14 H (0-5) /hpf Urine WBC >182 H (0-5) /hpf Urine WBC Clumps Many H (None) /hpf Urine Bacteria Occasional H (None) /hpf Urine Mucus Few H (None) /hpf Disposition <Jessica Bradley - Last Filed: 04/27/24 15:01> Is patient prescribed a controlled substance at d/c from ED?: No Time of Disposition: 17:49 <Rigo Rosales - Last Filed: 04/27/24 17:49> Clinical Impression: UTI (urinary tract infection) Disposition: HOME SELF-CARE Condition: Good Instructions (If sedation given, give patient instructions): Urinary Tract Infection in Men (ED) Prescriptions: Cefpodoxime Proxetil [Vantin] 200 mg PO Q12HR 10 Days #20 tab Referrals: [facility],Clinic [Primary Care Provider] - 1-2 days
[2024-04-27 15:59] LABS: Appearance,Urine Turbid (Clear); Bacteria,Urine Occasional /hpf; Bilirubin,Urine Negative (Negative); Blood,Urine Small (Negative); Color,Urine Yellow; Glucose,Urine (UA) 4+ (Negative); Ketones,Urine 1+ (Negative); Leukocyte Esterase,Urine Large (Negative); Mucus,Urine Few /hpf; Nitrite,Urine Positive (Negative); PH, Urine 5.5 (5.0-8.0); Protein,Urine 1+ (Negative); RBC,Urine 14 /hpf (0-5); Specific Gravity,Urine 1.024 (1.001-1.035); Urobilinogen,Urine <2.0 mg/dL (<2.0); WBC,Urine >182 /hpf (0-5)
[2024-04-27] MEDS: cefTRIAXone 1,000 MG VIAL (IM USE) IM STA (17:59)
[2024-04-27 18:15] VITALS: BP 120/68; PULSE 80; RESP 18; TEMP 98.1
== END 2024-04-27 18:42 | disposition home or self-care (01) ==
LOC: EC 14:37
DX: N39.0 Urinary tract infection, site not specified (principal); Z87.891 Personal history of nicotine dependence
CPT/HCPCS: 96372; 51798; 81001; 99284; J0696; 99283